=== PATIENT | male | born 1945 | race Caucasian/White ===

== ENCOUNTER → 2017-02-10 07:50 | Outpatient (CLI) | payer MEDICARE, OTHER ==
--- NOTE | ~2017-02-10 | HEMODYNAMI ---
PATIENT:REGINO AKERS MEDICAL RECORD: [id number] : 43 LOCATION:[facility] ADMISSION DATE: 02/10/17 Generatedon:02/10/201711:20 Patient name: REGINO AKERS Patient #: [id number] SSN: : 1945 Date of study: 02/10/2017 Page: Of Hemodynamic Procedure Report Patient Data Patient Demographics Procedure consent was obtained First Name: REGINO Gender: Male Last Name: DELPHINE : 1945 Middle Initial: H Age: 71 year(s) Patient #: [id number] Race: Unknown Additional ID: [id number] Contact details [address]: [address] [place] [address] State: [place] City: [place] Zip code: [address] Past Medical History Allergies Allergen Reaction Date Comments Reported Other allergy 02/10/2017 Sulfa Admission Admission Data Admission Date: 02/10/2017 Admission Time: 7:50 Height (in.): 71 BSA: 2.34 (m2) Height (cm.): 180.34 BMI: 35.56 (kg/m2) Weight (lbs.): 255 Weight (kg.): 115.67 Procedure Procedure Types Cath Procedure Diagnostic Procedure [facility] w/Coronaries FFR/IVUS Intra-Coronary IVUS Initial PCI Procedure Coronary Stent Initial Coronary Stent Additional Miscellaneous Procedures Moderate Sedation up to 15 minutes Procedure Description Procedure Date Procedure Date: 02/10/2017 Procedure Start Time: 10:51 Procedure End Time: 11:15 Procedure Staff Name Function Don Zamudio MD Performing Physician Jacqueline Merida RT Scrub Zackery Stovall RN Nurse Richa Wilson RT Monitor Procedure Data Cath Procedure Fluoroscopy Diagnostic fluoroscopy Total fluoroscopy Time: 6.6 time: 6.6 min min Diagnostic fluoroscopy Total fluoroscopy dose: dose: 1139 mGy 1139 mGy Contrast Material Contrast Material Type Amount (ml) Isovue 300 155 Entry Location Entry Primary Successful Side Size Upsize Upsize Entry Closure Timmons ccessful Closure Location (Fr) 1 (Fr) 2 (Fr) Remarks Device Remarks Radial Right 6 Fr Mechanical TR artery Short Compression Femoral Right 5 Fr 6 Fr Exoseal artery Short Estimated blood loss: 10 ml Diagnostic catheters Device Type Used For End Catheter Placement Diagnostic Terumo 5Fr Procedure Gasquet 110cm catheter Cordis 5Fr Pigtail LV Angiography Catheter (MP) Cordis 5Fr JL 4.0 Procedure Catheter (MP) Diagnostic Infinity 5Fr Procedure JL 5 catheter Cordis 5Fr 3DRC Catheter Procedure (MP) Procedure Complications No complications Procedure Medications Medication Administration Route Dosage Oxygen NC 2 l/min Lidocaine 2% added to field 20 Heparin Flush Bag added to field 2 bags (1000units/500ml NS) 0.9% NaCl I.V. 100 ml/hr Versed I.V. 1 mg Fentanyl I.V. 50 mcg Versed I.V. 1 mg Fentanyl I.V. 50 mcg Heparin Bolus I.V. 4000 units Fentanyl I.V. 50 mcg Integrilin (Bolus I.V. 10.2 ml 2mg/ml) Fentanyl I.V. 50 mcg Plavix P.O. 600 mg Hemodynamics Rest BSA: 2.34 (m2) O2 Consumption: Estimated: 263.01 (ml/min) O2 Consumption indexed : Estimated:112.4 (ml/min/m) Heart Rate: 62 (bpm) Snapshots Pre Cath Intra NCS Post Cath Vital Signs Time Heart Resp SPO2 etCO2 NIBP (mmHg) Rhythm Pain Sedation Rate (ipm) (%) (mmHg) Status Level (bpm) 10:43:17 65 19 97 40.6 151/88(127) NSR 0 (11) 10(A) , No pain 10:47:37 64 16 96 37.6 142/80(119) NSR 0 (11) 10(A) , No pain 10:51:55 63 15 96 36.1 147/81(109) NSR 0 (11) 10(A) , No pain 10:56:13 62 14 93 14.2 101/60(86) NSR 0 (11) 10(A) , No pain 11:01:08 66 14 93 27.8 128/70(99) NSR 0 (11) 9(A) , No pain 11:05:26 68 14 94 37.6 131/67(88) NSR 0 (11) 9(A) , No pain 11:09:46 67 15 95 45.1 136/71(110) NSR 0 (11) 9(A) , No pain 11:14:04 66 15 95 41.3 135/79(110) NSR 0 (11) 10(A) , No pain Medications Time Medication Route Dose Verified Delivered Reason Notes Effectiveness by by 10:42:44 Oxygen NC 2 Buffie Buffie used for l/min Sia Stovall RN procedure 10:42:51 Lidocaine 2% added 20ml Buffie Don for local to vial Sia Zamudio MD anesthetic field 10:42:57 Heparin Flush added 2 Buffie Don used for Bag to bags Sia Zamudio MD procedure (1000units/500ml field NS) 10:43:05 0.9% NaCl I.V. 100 Buffie Buffie Per physician ml/hr Sia Stovall RN 10:46:45 Versed I.V. 1 mg Buffie Buffie for sedation Sia Stovall RN 10:46:51 Fentanyl I.V. 50 Buffie Buffie for sedation mcg Sia Stovall RN 10:53:47 Versed I.V. 1 mg Buffie Buffie for sedation Sia Stovall RN 10:53:51 Fentanyl I.V. 50 Buffie Buffie for sedation mcg Sia Stovall RN 10:57:00 Fentanyl I.V. 50 Buffie Buffie for sedation mcg Sia Stovall RN 11:00:27 Heparin Bolus I.V. 4000 Buffie Buffie for verifi ed units Sia Stovall RN anticoagulation with dr zamudio 11:00:38 Fentanyl I.V. 50 Buffie Buffie for sedation mcg Sia Stovall RN 11:05:01 Integrilin I.V. 10.2 Buffie Buffie for Wasted (Bolus 2mg/ml) ml Sia Stovall RN antiplatelet 9.8 ml therapy of vial 11:19:38 Plavix P.O. 600 Buffie Buffie for mg Sia Stovall RN antiplatelet therapy Procedure Log Time Note 10:22:42 Patient Height : 71 inches 10:22:51 Patient Weight : 255 lbs 10:23:13 Diagnostic Cath status Elective 10:23:15 Zackery Stovall RN sent for patient. Start room use. 10:23:16 Time tracking: Regular hours 10:29:14 Patient received from Pre/Post Procedure Room to CCL 2 Alert and oriented. Tansferred to table in Supine position. 10:29:18 Warm blankets applied, and brenda hugger turned on for patient comfort. 10:29:18 Correct patient and procedure confirmed by team. 10:29:21 Signed procedure consent form obtained from patient. 10:29:39 H&P Date Dictated: 02/03/2017 Within 30 days and on chart., H&P Addendum completed by physician on day of procedure. (MUST COMPLETE FOR ALL OUTPATIENTS). 10:29:40 Pre-procedure instructions explained to patient. 10:29:42 Family in waiting room. 10:29:44 Patient NPO since Midnight. 10:29:58 Patient allergic to Other allergySulfa 10:30:05 Was the patient premedicated? Yes 10:32:12 Is patient on blood thinner?No 10:32:15 Patient diabetic? No. 10:32:18 Previous problem with sedation/anesthesia? No ? 10:38:42 Snore? Yes 10:38:44 Sleep apnea? Yes 10:38:52 Patient pain scale 0/10 ?. 10:39:00 IV patent on arrival in left forearm with 0.9% NaCl at [facility]. 10:39:12 Lab results completed and on chart. 10:39:17 Right Radial & Right Groin area was prepped with chlora-prep and draped in sterile fashion 10:39:18 Alarms reviewed by R. N. 10:39:19 Sharps counted by scrub and verified by R.N. 10:39:21 Physician paged 10:39:21 Physician arrived 10:39:22 --------ALL STOP TIME OUT------ 10:39:24 Final Timeout: patient, procedure, and site verified with staff and physician. All members of the team are in agreement. 10:39:26 Right Radial & Right Groin site verified by team. 10:39:30 Physical assessment completed. ASA score P 2 - A patient with mild systemic disease as per Don Zamudio MD. 10:39:34 Sedation plan: IV Moderate Sedation Versed, Fentanyl 10:39:55 Use device set Radial Dx 10:39:56 Acist Syringe opened to sterile field. 10:39:56 Medline Cath Pack opened to sterile field. 10:39:57 Bag Decanter opened to sterile field. 10:39:58 Terumo 6Fr Slender Glidesheath opened to sterile field. 10:39:58 St Maximiliano 260cm J .035 wire opened to sterile field. 10:39:58 Acist Hand Control opened to sterile field. 10:39:59 Acist Manifold opened to sterile field. 10:39:59 Tegaderm 4 x 4 opened to sterile field. 10:40:00 MBrace Wrist Support opened to sterile field. 10:42:06 ECG and BP/O2 sat monitors applied to patient. 10:42:07 Vital chart was started 10:42:09 Baseline sample Acquired. 10:42:14 Rhythm: sinus rhythm 10:42:15 Full Disclosure recording started 10:42:29 Is patient on blood thinner?Yes 10:42:39 ACC The patient was administered the following blood thiners within the last 24 hours: Eliquis 10:42:44 Oxygen 2 l/min NC was administered by Zackery Stovall RN; used for procedure; 10:42:51 Lidocaine 2% 20ml vial added to field was administered by Don Zamudio MD; for local anesthetic; 10:42:57 Heparin Flush Bag (1000units/500ml NS) 2 bags added to field was administered by Don Zamudio MD; used for procedure; 10:43:05 0.9% NaCl 100 ml/hr I.V. was administered by Zackery Stovall RN; Per physician; 10:46:45 Versed 1 mg I.V. was administered by Zackery Stovall RN; for sedation; 10:46:51 Fentanyl 50 mcg I.V. was administered by Zackery Stovall RN; for sedation; 10:49:34 Zero performed for pressure channel P1 10:49:39 Zero performed for pressure channel P1 10:49:45 Zero performed for pressure channel P1 10:49:52 Zero performed for pressure channel P1 10:50:42 Zero performed for pressure channel P1 10:51:04 Local anesthetic to right radial artery with Lidocaine 2% by Don Zamudio MD.INITIAL ACCESS ONLY 10:51:15 A 6 Fr Short sheath was inserted into the Right Radial artery 10:51:48 A Diagnostic Terumo 5Fr Gasquet 110cm catheter was advanced over the wire and used for Procedure. 10:52:48 Use device set Multipack Set 10:53:19 unable to access heart through radial. 10:53:26 Local anesthetic to right femoral artery with Lidocaine 2% by Don Zamudio MD.ADDITIONAL ACCESS 10:53:39 A 5 Fr sheath was inserted into the Right Femoral artery 10:53:47 Versed 1 mg I.V. was administered by Zackery Stovall RN; for sedation; 10:53:51 Fentanyl 50 mcg I.V. was administered by Zackery Stovall RN; for sedation; 10:54:09 Diagnostic Infinity 5Fr Multipack catheter opened to sterile field. 10:54:10 Terumo 5Fr [place] Sheath opened to sterile field. 10:54:24 A Cordis 5Fr Pigtail Catheter (MP) was advanced over the wire and used for LV Angiography. 10:54:49 Aortic Root visualized 10:56:02 EF : 60 % 10:56:08 Catheter removed. 10:56:34 A Cordis 5Fr JL 4.0 Catheter (MP) was advanced over the wire and used for Procedure. 10:56:45 Catheter removed. 10:57:00 Fentanyl 50 mcg I.V. was administered by Zackery Stovall RN; for sedation; 10:57:05 A Diagnostic Infinity 5Fr JL 5 catheter was advanced over the wire and used for Procedure. 10:58:06 Catheter removed. 10:58:14 A Cordis 5Fr 3DRC Catheter (MP) was advanced over the wire and used for Procedure. 10:59:12 [place] IVUS Catheter opened to sterile field. 10:59:12 Leaders2020 BasixCompak Inflation Kit opened to sterile field. 10:59:13 Terumo 6Fr [place] Sheath opened to sterile field. 10:59:13 Nguyen Whisper J 300cm 0.014 guide wire opened to sterile field. 10:59:14 Medtronic Launcher 6Fr EBU 4.5 SH guide catheter opened to sterile field. 10:59:23 Sheath upsized to a 6 Fr Short. 10:59:52 6 Fr EBU 4.5 guide catheter was inserted over the wire 11:00:27 Heparin Bolus 4000 units I.V. was administered by Zackery Stovall RN; for anticoagulation; verified with dr zamudio 11:00:38 Fentanyl 50 mcg I.V. was administered by Zackery Stovall RN; for sedation; 11:00:38 Whisper wire advanced. 11:00:59 IVUS catheter advanced over wire. 11:04:19 IVUS catheter removed over wire. 11:05:01 Integrilin (Bolus 2mg/ml) 10.2 ml I.V. was administered by Zackery Stovall RN; for antiplatelet therapy; Wasted 9.8 ml of vial 11:06:55 Inflation Number: 1 A Antwon OTW 3.0 x 22 stent was prepped and advanced across the Mid LAD. The stent was deployed at 15 CLIVE for 0:06 (min:sec). 11:08:22 Stent catheter was removed intact over wire. 11:08:28 Wire redirected to Ramus. 11:09:16 Inflation Number: 1 A Emory OTW 3.0 x 15 stent was prepped and advanced across the Ramus. The stent was deployed at 11 CLIVE for 0:10 (min:sec). 11:11:06 Stent catheter was removed intact over wire. 11:11:08 Wire removed. 11:11:09 Guide catheter removed. 11:11:26 Cordis 6Fr Exoseal opened to sterile field. 11:11:26 Terumo TR Band Large opened to sterile field. 11:11:42 Sheath removed intact; hemostasis achieved with Exoseal to the Right Femoral artery. 11:11:53 Sheath removed intact; hemostasis achieved with Mechanical Compression to the Right Radial artery. 11:11:57 Procedure ended.(Physican Out) 11:13:02 Fluoroscopy time 06.60 minutes. 11:13:07 Fluoroscopy dose: 1139 mGy 11:13:07 Flurop Dose total: 1139 11:13:12 Contrast amount:Isovue 300 155ml. 11:13:14 Sharps counted by scrub and verified by R.N. 11:13:17 TR band inflated with 12cc of air. 11:13:18 Insertion/operative site no bleeding no hematoma. 11:13:21 Post-op/insertion site Right Femoral artery dressed using a 4 x 4 and Tegaderm. 11:13:27 Post-procedure physical assessment completed. ASA score P 2 - A patient with mild systemic disease as per Don Zamudio MD. 11:13:30 Post procedure rhythm: unchanged. 11:13:33 Estimated blood loss: 10 ml 11:13:36 Post procedure instruction explained to patient.Patient verbalizes understanding. 11:13:43 Patient needs reinforcement of post procedure teaching. 11:14:38 Procedure type changed to Cath procedure, Diagnostic procedure, LHC, C w/Coronaries, FFR/IVUS, Intra-Coronary IVUS Initial, PCI procedure, Coronary Stent Initial, Coronary Stent Additional, Miscellaneous Procedures, Moderate Sedation up to 15 minutes 11:14:41 Procedure and supply charges have been captured, reviewed, submitted and are correct. 11:15:17 Procedure Complication : No complications 11:15:20 Vital chart was stopped 11:15:40 See physician's report for complete and final results. 11:15:42 Report given to Pre/Post Procedure Room. 11:15:54 Patient transfered to Pre/Post Procedure Room with Stretcher. 11:15:56 Procedure ended. 11:15:56 Full Disclosure recording stopped 11:16:19 ACC-PCI Only Patient was given prescriptions, or instructed by Don Zamudio MD to start/continue the following medications upon discharge: Plavix 11:19:38 Plavix 600 mg P.O. was administered by Zackery Stovall RN; for antiplatelet therapy; Intervention Summary Intervention Notes Time ActionType Lesion and Equipment Action# Pressure Duration Attributes Used 11:06:55 Place stent Mid LAD Emory OTW 1 15 00:07 3.0 x 22 stent 11:09:16 Place stent Ramus Emory OTW 1 11 00:10 3.0 x 15 stent Device Usage Item Name Manufacture Quantity Catalog Hospital Part Current Minima l Lot# / Number Charge Number Stock Stock Serial# Code Acist Acist 1 82735 090664 790813 822512 20 Syringe Medical Systems Inc Medline Cardinal 1 [id number] 694274 27458 431338 5 Cath Pack Health Bag Microtek 1 2001S 859984 98284 381252 5 Dolphin Medical Inc. Terumo 6Fr Terumo 1 [id number] 302525 388297 719876 [address] St Maximiliano 1 940225 770170 097641 624786 30 260cm J .035 wire Acist Hand Acist 1 68692 461188 868780 542691 5 RSP Tooling Systems Inc Acist Acist 1 39054 308945 518040 740403 5 Oxsensis Systems Altura Medical Tegaderm 4 3M 1 1626W 316024 376925 116700 5 x 4 MBrace Advanced 1 140-0250-00 054574 75828 462768 5 Wrist Vascular Support Dynamics Diagnostic Terumo 1 23-3380 253614 704037 362648 5 Terumo 5Fr Gasquet 110cm catheter Diagnostic Cardinal 1 [id number] 400213 15394 014659 30 Infinity Health 5Fr Multipack catheter Terumo 5Fr Terumo 1 JDL158 435066 743320 743182 40 [place] Sheath Cordis 5Fr Cardinal 1 793853 5 Pigtail Health Catheter (MP) Cordis 5Fr Cardinal 1 198890 5 JL 4.0 Health Catheter (MP) Diagnostic Cardinal 1 [id number] 955349 574539 376281 5 Infinity Health 5Fr JL 5 catheter Cordis 5Fr Cardinal 1 898297 5 3DRC Health Catheter (MP) [place] 1 60741P 992118 306925 454108 8 [place] Eagley[place] IVUS Catheter Merit Merit 1 TM0496 675407 670197 389375 15 YG Entertainment Medical Inflation Kit Terumo 6Fr Terumo 1 ZGL195 628818 483956 211549 40 [place] Sheath Nguyen Nguyen 1 [id number] 885376 384669 475082 5 Whisper J Vascular 300cm 0.014 guide wire Medtronic Medtronic 1 [id number] 030240 78443 975587 0 Launcher 6Fr EBU 4.5 SH guide catheter Antwon OTW Medtronic 1 [id number] 575242 6028367 520853 5 [id number] 3.0 x 22 stent Antwon OTW Medtronic 1 [id number] 377099 569000 320337 5 [id number] 3.0 x 15 stent Cordis 6Fr Cardinal 1 EX600 687971 292385 244393 10 Infrascaleeal Health Terumo TR Terumo 1 [id number] 180516 500443 069374 40 Band Large Signature Audit [place] Stage Time Signature Unsigned Intra-Procedure 02/10/2017 Richa Wilson 11:20:51 AM RT(R) Signatures Monitor : Richa Wilson Signature : RT Date : Time : [facility] [address] [place] [address]
[~2017-02-10 07:50] MED LIST: BAYER CHEWABLE81 MG PO; BUPROBAN150 MG PO; CELEXA40 MG PO; ELIQUIS2.5 MG PO; FLINTSTONE1 TAB.CHEW; FLOMAX0.4 MG PO; IPRAT-ALBUT 0.5-3 ML UPD; K-DUR20 MEQ PO; LEXAPRO10 MG PO; LIPITOR10 MG PO; MAG-OX 400 MG400 MG PO; MIRALAX17 GM PO; NAPROSYN500 MG PO; NEXIUM40 MG; NEXIUM40 MG PO; NIASPAN500 MG PO; NORVASC10 MG PO; PERCOCET 5-3251 TAB PO; PLAVIX75 MG PO; PRINIVIL20 MG PO; STOOL SOFTENER240 MG PO; XIFAXAN550 MG PO
[2017-02-10 08:30] VITALS: BP 136/73; BMI 34.9
[2017-02-10 08:46] LABS: BASOPHILS 0.2 % (0-2); EOSINOPHILS 3.8 % (0-7); HEMATOCRIT 42.8 % (42.0-54.0); HEMOGLOBIN 14.8 g/dL (13.5-17.5); IMMATURE GRANULOCYTES 0.2 % (0-5); LYMPHOCYTES 18.5 % (15-50); MCH 31.9 pg (26.0-34.0); MCHC 34.6 g/dL (31.0-37.0); MCV 92.2 fL (80.0-100.0); MEAN PLATELET VOLUME 10.9 fL (7.4-10.4); MONOCYTES 10.4 % (2-11); NEUTROPHILS 66.9 % (40-80); RBC 4.64 10x6/uL (4.20-6.10); RDW 13.3 % (11.5-14.5); WBC 4.7 10x3/uL (4.8-10.8)
[2017-02-10 08:48] LABS: PLATELET COUNT 138 10x3/uL (130-400)
[2017-02-10 09:23] LABS: ANION GAP 13.9 mmol/L (8-16); CARBON DIOXIDE 27.9 mmol/L (21.0-32.0); CREATININE - SERUM 1.3 mg/dL (0.6-1.3); POTASSIUM - SERUM 3.8 mmol/L (3.5-5.1)
--- NOTE | 2017-02-10 11:32 | NUR ---
RECIEVED TO ROOM VIA STRETCHER FROM DRUG SAFETY ASSISTANT WITH REPORTS OF ONE STENT TO THE LAD AND ONE STENT TO THE RAMUS. TR BAND TO R/WRIST CDI NO BLEEDING NO HEMATOMA NOTED. 6 FR EXOSEAL R/GROIN CDI NO BLEEDING NO HEMATOMA NOTED. INSTRUCTED PATIENT TO KEEP HEAD FLAT ON PILLOW WITH RLE STRAIGHT.
--- NOTE | 2017-02-10 11:50 | NUR ---
6 FR EXOSEAL R/GROIN CDI NO BLEEDING NO HEMATOMA NOTED. TR BAND TO R/WRIST CDI NO BLEEDING VSS WITH CHEST PAIN DENIED TOLERATING JUICE WITH NAUSEA DENIED
--- NOTE | 2017-02-10 12:33 | NUR ---
TR BAND R/WRIST CDI NO BLEEDING 6 FR EXOSEAL R/GROIN CDI NO BLEEDING NO HEMATOMA NOTED. VSS WITH CHEST PAIN DENIED
--- NOTE | 2017-02-10 13:00 | NUR ---
PATIENT CONTINUES TO SLEEP WITH NO DISTRESS NOTED.VSS
--- NOTE | 2017-02-10 13:34 | NUR ---
3 CC AIR REMOVED FROM TR BAND WITH NO BLEEDING NO HEMATOMA NOTED. 6 FR EXOSEAL R/GROIN REMAINS CDI
--- NOTE | 2017-02-10 14:00 | NUR ---
1400 3 CC AIR REMOVED FROM TR BAND WITH NO BLEEDING NO HEMATOMA NOTED. R/GROIN REMAINS CDI
--- NOTE | 2017-02-10 15:04 | NUR ---
REPOSITIONED TO SITTING WITH HOB UP 45 DEGREES R/GROIN CDI NO BLEEDING NOTED. 3 CC AIR REMOVED FROM TR BAND WITH NO BLEEDING
--- NOTE | 2017-02-10 15:27 | NUR ---
PIV REMOVED WITH DRESSING APPLIED. 4 CC AIR REMOVED FROM TR BAND WITH NO BLEEDING NO HEMATOMA NOTED. VERBAL AND WRITTEN DISCHARGE GONE OVER WITH PATIENT AND FAMILY. UP TO GET DRESSED FOR DISCHARGE HOME CHEST PAIN DENIED
--- NOTE | 2017-02-10 15:32 | NUR ---
TR BAND REMOVED WITH DRESSING APPLIED. CHEST PAIN IS DENIED. PATIENT LEFT VIA WC WITH FAMILY TO PARKING FOR DISCHARGE HOME
--- NOTE | 2017-02-13 16:56 | OP ---
PATIENT NAME: REGINO AKERS MEDICAL RECORD: [id number] :43 LOCATION:[facility] ADMISSION DATE: SURGEON: ELMO SMITH MD DATE OF OPERATION: 02/10/2017 PROCEDURES: 1. PTCA stent to LAD. 2. PTCA stent to ramus intermedius. 3. Intravascular ultrasound. 4. Left heart catheterization. 5. Selective coronary angiography. 6. Left ventriculogram. PROCEDURE IN DETAIL: After informed consent was obtained and after a detailed explanation of the risks, benefits as well as alternative therapies, the patient elected to proceed with angiogram and angioplasty. The right radial area was prepped and draped in normal sterile fashion. The right radial artery was cannulated via modified Seldinger technique with placement of 6-[place] sheath. All catheters exchanged through this sheath. FINDINGS: Left ventriculogram was performed in standard 30-degree SILVA view, reveals good cardiac wall motion throughout all segments. Overall ejection fraction estimated 60%. SELECTIVE CORONARY ANGIOGRAPHY: 1. Left main showed no significant angiographic disease. 2. Left anterior descending has a 78% stenosis in the mid vessel confirmed by intravascular ultrasound. 3. Left circumflex has a ramus intermedius with 70% to 75% stenosis. 4. Right coronary has moderate irregularities, but no flow-limiting stenosis. PTCA STENT OF THE LAD AND RAMUS INTERMEDIUS: The LAD was addressed with a 3.0 x 22 mm [place], the ramus intermedius with a 3.0 x 15 mm [place]. Result was 0% residual stenosis. OVERALL IMPRESSION: Successful percutaneous transluminal coronary angioplasty stent of the left anterior descending and ramus intermedius going from 75% to 80% initial stenosis to 0% residual stenosis. TRANSINT:[id number] Voice Confirmation ID: [id number] DOCUMENT ID: [id number] ELMO SMITH MD at 1656 CC: [id number] DICTATION DATE: 02/10/17 1144 [place] MAKER: 02/10/17 1205 [facility] CLI 02/10/17 [place] [id number]
== END | disposition home or self-care (01) ==
LOC: D.CATH 07:50
PROVIDERS: Internal Medicine Interventional Cardiology
DX: I25.119 Atherosclerotic heart disease of native coronary artery with unspecified angina pectoris (principal); Z95.5 Presence of coronary angioplasty implant and graft; Z01.812 Encounter for preprocedural laboratory examination
CPT/HCPCS: 92978; 93458; C9600 ×2

== ENCOUNTER → 2018-02-26 08:52 | Outpatient (CLI) | payer MEDICARE, OTHER ==
[~2018-02-26] VITALS: Ht 180.3 cm; Wt 108.6 kg
--- NOTE | ~2018-02-26 | OP ---
PATIENT NAME: REGINO AKERS MEDICAL RECORD: [id number] :43 LOCATION:D.CAT ADMISSION DATE: SURGEON: ELMO SMITH MD DATE OF OPERATION: 02/26/2018 PROCEDURES: 1. PTCA and stent of ramus intermedius. 2. Left heart catheterization. 3. Selective coronary angiography. 4. Left ventriculogram. INDICATION: Angina and coronary artery disease. PROCEDURE IN DETAIL: After informed consent was obtained and after a detailed explanation of risks, benefits as well as alternative therapies, the patient elected to proceed with angiogram and angioplasty. The right femoral area was prepped and draped in normal sterile fashion. Right femoral artery was cannulated via modified Seldinger technique with placement of 6-[place] sheath. All catheters exchanged through this sheath. FINDINGS: The left ventriculogram was performed in standard 30-degree SILVA view, reveals good cardiac wall motion throughout all segments. Overall ejection fraction estimated 60%. SELECTIVE CORONARY ANGIOGRAPHY: 1. Left main has no significant angiographic disease. 2. Left anterior descending has previously placed stent that is widely patent with no significant restenosis. No disease elsewise throughout the LAD or its branches. 3. Ramus intermedius of the circumflex has a previously placed stent. It is widely patent; however, there is 70% to 80% stenosis proximal and distal to the stent. Otherwise the left circumflex shows mild irregularities, but no flow-limiting stenosis. 4. Right coronary has mild irregularities, but no flow-limiting stenosis. PTCA AND STENT OF THE RAMUS INTERMEDIUS: The stent used covering both lesions was a 2.5 x 26-mm [place]. The result was 0% residual stenosis. OVERALL IMPRESSION: Successful PTCA and stent of the left circumflex ramus intermedius going from 70% to 80% initial stenosis times 2 to 0% residual. TRANSINT:[id number] Voice Confirmation ID: [id number] DOCUMENT ID: [id number] ELMO SMITH MD at 1031 CC: VIVIANA AKERS [id number] DICTATION DATE: 02/26/18 1150 SOCIAL MEDIA STRATEGIST: 02/26/18 1405 [facility]P CLI 02/26/18 [facility] [address] [place] [address]
--- NOTE | ~2018-02-26 | HEMODYNAMI ---
PATIENT:REGINO AKERS MEDICAL RECORD: [id number] : 43 LOCATION:[facility] ADMISSION DATE: 02/26/18 Generatedon:02/26/201811:50 Patient name: REGINO AKERS Patient #: [id number] SSN: : 1945 Date of study: 02/26/2018 Page: Of Hemodynamic Procedure Report Patient Data Patient Demographics Procedure consent was obtained First Name: REGINO Gender: Male Last Name: DELPHINE : 1945 Middle Initial: H Age: 72 year(s) Patient #: [id number] Race: Unknown Additional ID: [id number] Contact details [address]: [address] [place] [address] State: [place] City: [place] Zip code: [address] Past Medical History Allergies Allergen Reaction Date Comments Reported Other allergy 02/10/2017 Sulfa Admission Admission Data Admission Date: 02/26/2018 Admission Time: 8:52 Procedure Procedure Types Cath Procedure Diagnostic Procedure LHC [facility] w/Coronaries Sedation Charges Moderate Sedation up to 15 minutes PCI Procedure Coronary Stent Coronary Stent Initial Procedure Description Procedure Date Procedure Date: 02/26/2018 Procedure Start Time: 11:34 Procedure End Time: 11:48 Procedure Staff Name Function Don Zamudio MD Performing Physician Jacqueline Merida RT Monitor Zackery Stovall RN Nurse Mary Curiel RT Scrub Art Salazar RN Steel Finisher Procedure Data Cath Procedure Fluoroscopy Diagnostic fluoroscopy Total fluoroscopy Time: 2.9 time: 2.9 min min Diagnostic fluoroscopy Total fluoroscopy dose: 719 dose: 719 mGy mGy Contrast Material Contrast Material Type Amount (ml) Isovue 300 109 Entry Location Entry Primary Successful Side Size Upsize Upsize Entry Closure Succes sful Closure Location (Fr) 1 (Fr) 2 (Fr) Remarks Device Remarks Femoral Right 5 Fr 6 Fr Exoseal artery Short Estimated blood loss: 5 ml Diagnostic catheters Device Type Used For End Catheter Placement Medtronic Dexterity 5Fr LV Angiography Pigtail catheter(NO COST SUPPLY) DIAGNOSTIC JL 5 5Fr Left Coronary catheter ([id number]) Angiography DIAGNOSTIC 3DRC 5Fr Right Coronary catheter ([id number]) Angiography Procedure Complications No complications Procedure Medications Medication Administration Route Dosage Oxygen etCO2 Nasal cannula 2 l/min Lidocaine 2% added to field 20 Heparin Flush Bag added to field 2 bags (1000units/500ml NS) 0.9% NaCl I.V. 100 ml/hr Versed I.V. 1 mg Fentanyl I.V. 50 mcg Versed I.V. 1 mg Fentanyl I.V. 25 mcg Heparin Bolus I.V. 4000 units Integrilin (Bolus I.V. 9.5 ml 2mg/ml) Versed I.V. 0.5 mg Plavix P.O. 600 mg Hemodynamics Rest Heart Rate: 51 (bpm) Pressure Samples Time Site Value (mmHg) Purpose Heart Use Rate(bpm) 11:36 LV 103/9,16 Snapshot 55 Snapshots Pre Cath Intra NCS Post Cath Vital Signs Time Heart Resp SPO2 etCO2 NIBP (mmHg) Rhythm Pain Sedation Rate (ipm) (%) (mmHg) Status Level (bpm) 10:47:21 52 14 97 35.6 175/83(109) NSR 0 (11) 10(A) , No pain 10:51:45 51 15 97 39.4 164/78(104) NSR 0 (11) 10(A) , No pain 10:56:07 51 15 97 40.1 156/79(99) NSR 0 (11) 10(A) , No pain 11:00:27 52 16 97 39.3 151/76(99) NSR 0 (11) 10(A) , No pain 11:04:43 51 16 97 37.8 152/84(113) NSR 0 (11) 10(A) , No pain 11:09:52 51 14 97 38.6 143/81(98) NSR 0 (11) 10(A) , No pain 11:14:08 51 15 96 40.1 145/78(98) NSR 0 (11) 10(A) , No pain 11:18:24 52 15 96 43.9 138/77(105) NSR 0 (11) 10(A) , No pain 11:22:28 55 14 99 44.6 124/72(92) NSR 0 (11) 10(A) , No pain 11:26:36 52 14 96 43.1 136/78(97) NSR 0 (11) 10(A) , No pain 11:30:50 52 15 97 43.9 136/76(98) NSR 0 (11) 9(A) , No pain 11:35:04 49 14 97 38.6 137/75(105) NSR 0 (11) 9(A) , No pain 11:39:18 51 14 97 40.1 137/72(111) NSR 0 (11) 9(A) , No pain 11:43:30 50 13 97 43.1 138/77(114) NSR 0 (11) 9(A) , No pain 11:47:44 52 13 97 43.9 142/74(105) NSR 0 (11) 10(A) , No pain Medications Time Medication Route Dose Verified Delivered Reason Notes Effectiveness by by 10:45:39 Oxygen etCO2 2 Don Vizcarra used for Nasal l/min Lizz Stovall RN procedure cannula 10:45:47 Lidocaine 2% added 20ml Don Ochoa for local to vial Lizz Zamudio MD anesthetic field 10:45:53 Heparin Flush added 2 Don Don used for Bag to bags Lizz Zamudio MD procedure (1000units/500ml field NS) 10:46:02 0.9% NaCl I.V. 100 Don Vizcarra Per physician ml/hr Lizz Stovall RN 11:29:34 Versed I.V. 1 mg Don Vizcarra for sedation Lizz Stovall RN 11:29:39 Fentanyl I.V. 50 Don Melendezie for sedation mcg Lizz Stovall RN 11:35:38 Versed I.V. 1 mg Don Melendezie for sedation Lizz Stovall RN 11:35:44 Fentanyl I.V. 25 Don Vizcarra for sedation mcg Lizz Stovall RN 11:39:36 Versed I.V. 0.5 Don Vizcarra for sedation mg Lizz Stovall RN 11:41:16 Heparin Bolus I.V. 4000 Don Vizcarra for verif ied units Lizz Stovall RN anticoagulation with dr azmudio 11:43:31 Integrilin I.V. 9.5 Don Vizcarra for waste d (Bolus 2mg/ml) ml Tauth MD Stovall RN antiplatelet 0.5 ml therapy of vial 11:47:54 Plavix P.O. 600 Don Vizcarra for mg Lizz Stovall RN antiplatelet therapy Procedure Log Time Note 10:30:08 Art Salazar RN sent for patient. Start room use. 10:38:14 Time tracking: Regular hours (M-F 7:00 - 5:00) 10:38:18 Plan of Care:Hemodynamics will remain stable., Cardiac rhythm will remain stable., Comfort level will be maintained., Respiratory function will remain adequate., Patient/ family verbilizes understanding of procedure., Procedure tolerated without complication., Recovers from procedure without complications.. 10:38:24 Patient received from Pre/Post Procedure Room to [facility] 2 Alert and oriented. Tansferred to table in Supine position. 10:38:25 Warm blankets applied, and brenda hugger turned on for patient comfort. 10:38:26 Correct patient and procedure confirmed by team. 10:38:27 Signed procedure consent form obtained from patient. 10:38:28 ECG and BP/O2 sat monitors applied to patient. 10:38:29 Full Disclosure recording started 10:45:39 Oxygen 2 l/min etCO2 Nasal cannula was administered by Zackery Stovall RN; used for procedure; 10:45:47 Lidocaine 2% 20ml vial added to field was administered by Don Zamudio MD; for local anesthetic; 10:45:53 Heparin Flush Bag (1000units/500ml NS) 2 bags added to field was administered by Don Zamudio MD; used for procedure; 10:46:02 0.9% NaCl 100 ml/hr I.V. was administered by Zackery Stovall RN; Per physician; 10:46:07 Vital chart was started 10:46:23 Baseline sample Acquired. 10:46:26 Rhythm: sinus rhythm 10:46:33 H&P Date Dictated: 02/26/2018 Within 30 days and on chart., H&P Addendum completed by physician on day of procedure. (MUST COMPLETE FOR ALL OUTPATIENTS). 10:46:35 Pre-procedure instructions explained to patient. 10:46:35 Pre-op teaching completed and patient verbalized understanding. 10:46:36 Family in waiting room. 10:46:38 Patient NPO since Midnight. 10:46:40 Is the patient allergic to Iodine/contrast media? No. 10:46:41 Was the patient premedicated? No 10:46:42 Is patient on blood thinner?Yes 10:46:44 ACC The patient was administered the following blood thiners within the last 24 hours: Xarelto 10:49:00 Patient diabetic? No. 10:49:02 Previous problem with sedation/anesthesia? No ? 10:49:05 Snore? Yes 10:49:07 Sleep apnea? Yes 10:49:13 Deviated septum? No 10:49:14 Opens mouth fully? Yes 10:49:15 Sticks out tongue? Yes 10:49:17 Airway obstruction? No ? 10:49:22 Dentures? No ? 10:49:26 Pre procedure: right dorsailis pedis pulse 2+ Normal; easily identifiable; not easily obliterated 10:49:29 Pre procedure: left dorsailis pedis pulse 2+ Normal; easily identifiable; not easily obliterated 10:49:32 Patient pain scale 0/10 ?. 10:49:39 IV patent on arrival in left forearm with 0.9% NaCl at [facility]. 10:49:42 Lab results completed and on chart. 10:49:47 Right groin area was prepped with chlora-prep and draped in sterile fashion 10:49:48 Alarms reviewed by R. N. 10:49:48 Sharps counted by scrub and verified by R.N. 10:53:41 Use device set Femoral Dx 10:53:42 ACIST Syringe (48728) opened to sterile field. 10:53:43 Bag Decanter (2001S) opened to sterile field. 10:53:44 Medline Cath Pack ([id number]) opened to sterile field. 10:53:44 DIAGNOSTIC WIRE .035 260cm J wire (148793) opened to sterile field. 10:53:46 ACIST Hand Control (04981) opened to sterile field. 10:53:47 ACIST Manifold (54511) opened to sterile field. 10:53:50 Tegaderm 4 x 4 (1626W) opened to sterile field. 10:57:35 Zero performed for pressure channel P1 11:28:34 Physician arrived 11:28:35 --------ALL STOP TIME OUT------ 11:28:35 Final Timeout: patient, procedure, and site verified with staff and physician. All members of the team are in agreement. 11:28:38 Right groin site verified by team. 11:28:41 Physical assessment completed. ASA score P 2 - A patient with mild systemic disease as per Don Zamudio MD. 11::45 Sedation plan: IV Moderate Sedation Medication:Versed, Fentanyl 11:29:34 Versed 1 mg I.V. was administered by Zackery Stovall RN; for sedation; 11::39 Fentanyl 50 mcg I.V. was administered by Zackery Stovall RN; for sedation; 11:34:48 Procedure started. 11:34:52 Local anesthetic to right femoral artery with Lidocaine 2% by Don Zamudio MD.INITIAL ACCESS ONLY 11:35:05 A 5 Fr sheath was inserted into the Right Femoral artery 11:35:24 A Tandemerity 5Fr Pigtail catheter(NO COST SUPPLY) was advanced over the wire and used for LV Angiography. 11:35:38 Versed 1 mg I.V. was administered by Zackery Stovall RN; for sedation; 11::44 Fentanyl 25 mcg I.V. was administered by Zackery Stovall RN; for sedation; 11:36:31 LV hemodynamics recorded. 11:36:32 LV gram done using SILVA 11:36:35 Injector settings: Ml/sec: 5, Volume: 15, 11:36:43 EF : 60 % 11:36:45 Catheter removed. 11:36:54 A DIAGNOSTIC JL 5 5Fr catheter ([id number]) was advanced over the wire and used for Left Coronary Angiography. 11:37:21 LCA angiography performed. 11:37:23 Injector settings: Ml/sec: 3, Volume: 6, 11:39:33 Catheter removed. 11:39:36 Versed 0.5 mg I.V. was administered by Zackery Stovall RN; for sedation; 11:39:37 A DIAGNOSTIC 3DRC 5Fr catheter ([id number]) was advanced over the wire and used for Right Coronary Angiography. 11:39:39 RCA angiography performed. 11:39:42 Injector settings: Ml/sec: 3, Volume: 6, 11:39:54 Catheter removed. 11:39:55 Proceeding to intervention. 11:40:29 CHOICE PT Extra Support 182cm wire ([id number]) opened to sterile field. 11:40:30 INFLATOR Merit BasixCompak (QJ1674) opened to sterile field. 11:40:30 SHEATH 6FR Bruno (ORV733) opened to sterile field. 11:40:45 GUIDE 6FR EBU 4.5 catheter ([id number]) opened to sterile field. 11:41:06 Sheath upsized to a 6 Fr Short. 11:41:15 6 Fr ebu 4.5 guide catheter was inserted over the wire 11:41:16 Heparin Bolus 4000 units I.V. was administered by Zackery Stovall RN; for anticoagulation; verified with dr zamudio 11:41:26 choice pt wire advanced. 11:41:38 Wire advanced across lesion. 11:43:31 Integrilin (Bolus 2mg/ml) 9.5 ml I.V. was administered by Zackery Stovall RN; for antiplatelet therapy; wasted 0.5 ml of vial 11:43:54 Place stent Inflation Number: 1 A AP RX 2.5 x 26 stent ([id number]) was prepped and advanced across the Ramus. The stent was deployed at 13 CLIVE for 0:10 (min:sec). 11:44:10 Stent catheter was removed intact over wire. 11:44:11 Wire removed. 11:44:11 Guide catheter removed. 11:44:27 EXOSEAL 6Fr (EX600) opened to sterile field. 11:44:36 Sheath removed intact; hemostasis achieved with Exoseal to the Right Femoral artery. 11:44:38 Procedure ended.(Physican Out) 11:45:16 Fluoroscopy time 02.90 minutes. 11:45:21 Fluoroscopy dose: 719 mGy 11:45:21 Flurop Dose total: 719 11:45:26 Contrast amount:Isovue 300 109ml. 11:45:29 Sharps counted by scrub and verified by R.N. 11:46:21 Insertion/operative site no bleeding no hematoma. 11:46:26 Post-op/insertion site Right Femoral artery dressed using a 4 x 4 and Tegaderm. 11:46:31 Post right femoral artery:stable 11:46:32 Post Procedure Pulses reassessed and unchanged 11:46:35 Post procedure rhythm: unchanged. 11:46:37 Estimated blood loss: 5 ml 11:47:54 Plavix 600 mg P.O. was administered by Zackery Stovall RN; for antiplatelet therapy; 11:48:02 Post procedure instruction explained to patient.Patient verbalizes understanding. 11:48:02 Patient needs reinforcement of post procedure teaching. 11:48:12 Procedure type changed to Cath procedure, Diagnostic procedure, LHC, LHC w/Coronaries, Sedation Charges, Moderate Sedation up to 15 minutes, PCI procedure, Coronary Stent, Coronary Stent Initial 11:48:13 Procedure and supply charges have been captured, reviewed, submitted and are correct. 11:48:17 Procedure Complication : No complications 11:48:19 Vital chart was stopped 11:48:19 See physician's report for complete and final results. 11:48:22 Report given to Pre/Post Procedure Room. 11:48:24 Patient transfered to Pre/Post Procedure Room with Stretcher. 11:48:27 Procedure ended. 11:48:27 Full Disclosure recording stopped 11:48:36 ACC-PCI Only Patient was given prescriptions, or instructed by Don Zamudio MD to start/continue the following medications upon discharge: Plavix 11:48:37 End room use (Document Last) Intervention Summary Intervention Notes Time ActionType Lesion and Equipment Used Action# Pressure Duration Attributes 11:43:54 Place stent Ramus AP RX 2.5 x 1 13 00:10 26 stent ([id number]) Device Usage Item Name Manufacture Quantity Catalog Number Hospital Part Current M inimal Lot# / Charge Number Stock Stock Serial# Code ACIST Syringe Acist 1 68145 127891 739628 889909 2 0 (93614) Medical Systems Inc Bag Decanter Microtek 1 2001S 335826 40988 677457 5 () Medical Inc. Medline Cath Medline 1 [id number] 469695 63817 907510 5 Pack ([id number]) DIAGNOSTIC St Maximiliano 1 491273 281884 761614 008029 3 0 WIRE .035 260cm J wire (813781) ACIST Hand Acist 1 58269 109415 310603 374623 5 Control Medical (29924) Systems Inc ACIST Manifold Acist 1 97578 980427 977555 023232 5 (28088) Medical Systems Inc Tegaderm 4 x 4 3M 1 1626W 272032 304759 375866 5 (1626W) Medtronic Advanced Diamond Technologiestronic 1 [id number] 279359 242800 5 Dexterity 5Fr Pigtail catheter(NO COST SUPPLY) DIAGNOSTIC JL Cardinal 1 [id number] 480754 886497 593616 5 5 5Fr catheter Health (819476B) DIAGNOSTIC Cardinal 1 [id number] 241906 570621 922869 9 3DRC 5Fr Health catheter (963482A) CHOICE PT [place] 1 [id number] 073869 874900 815477 5 Extra Support Scientific 182cm wire ([id number]) INFLATOR Merit Merit 1 GP5708 160593 372670 311140 1 5 [employer] Medical (ZP4450) SHEATH 6FR Terumo 1 IFA904 434775 722005 716749 4 0 Bruno (BQZ336) GUIDE 6FR EBU Medtronic 1 [id number] 713714 23068 352323 0 4.5 catheter (DD0TRS78) AP RX 2.5 x Medtronic 1 [id number] 662800 1313951 169299 5 [id number] 26 stent ([id number]) EXOSEAL 6Fr Cardinal 1 EX600 962503 788973 185614 1 0 (EX600) Health Signature Audit Independence Stage Time Signature Unsigned Intra-Procedure 02/26/2018 Jacqueline Merida 11:50:09 AM RT(R) Signatures Monitor : Jacqueline Merida RT Signature : Date : Time : [id number] [place] [address]
[~2018-02-26 08:52] MED LIST changes: +BETAPACE 80 MG80 MG PO; +XARELTO10 MG PO
[2018-02-26 09:26] VITALS: BP 163/79; Ht 180.3 cm; Wt 108.6 kg
[2018-02-26 09:28] LABS: BASOPHILS 0.6 % (0-2); EOSINOPHILS 6.1 % (0-7); HEMATOCRIT 44.3 % (42.0-54.0); HEMOGLOBIN 15.6 g/dL (13.5-17.5); IMMATURE GRANULOCYTES 0.2 % (0-5); LYMPHOCYTES 19.1 % (15-50); MCH 32.2 pg (26.0-34.0); MCHC 35.2 g/dL (31.0-37.0); MCV 91.3 fL (80.0-100.0); MEAN PLATELET VOLUME 10.8 fL (7.4-10.4); MONOCYTES 12.4 % (2-11); NEUTROPHILS 61.6 % (40-80); PLATELET COUNT 152 10x3/uL (130-400); RBC 4.85 10x6/uL (4.20-6.10); RDW 12.8 % (11.5-14.5); WBC 4.9 10x3/uL (4.8-10.8)
[2018-02-26 09:37] LABS: ANION GAP 10.2 mmol/L (8-16); CALCIUM 8.8 mg/dL (8.5-10.1); CARBON DIOXIDE 31.2 mmol/L (21.0-32.0); CREATININE - SERUM 1.2 mg/dL (0.6-1.3); POTASSIUM - SERUM 3.4 mmol/L (3.5-5.1)
== END | disposition home or self-care (01) ==
LOC: D.CATH 08:52
PROVIDERS: Internal Medicine Interventional Cardiology
DX: I25.119 Atherosclerotic heart disease of native coronary artery with unspecified angina pectoris (principal); Z95.5 Presence of coronary angioplasty implant and graft; Z01.812 Encounter for preprocedural laboratory examination
CPT/HCPCS: 93458; C9600

== ENCOUNTER → 2018-04-08 13:50 | Outpatient (CLI) | payer MEDICARE, OTHER ==
[2018-02-26 09:26] VITALS: BMI 33.4
== END | disposition home or self-care (01) ==
LOC: D.MRI 13:50
DX: M75.101 Unspecified rotator cuff tear or rupture of right shoulder, not specified as traumatic (principal)

== ENCOUNTER 2018-09-22 11:24 | Observation (INO) | payer MEDICARE, OTHER ==
[~2018-09-22] VITALS: Ht 180.3 cm; Wt 110.9 kg
--- NOTE | ~2018-09-22 | HEMODYNAMI ---
PATIENT:REGINO AKERS MEDICAL RECORD: [id number] : 43 [id number] ADMISSION DATE: 09/22/18 Generatedon:09/22/201817:27 Patient name: REGINO AKERS Patient #: [id number] SSN: : 1945 Date of study: 09/22/2018 Page: Of Hemodynamic Procedure Report Patient Data Patient Demographics Procedure consent was obtained First Name: REGINO Gender: Male Last Name: DELPHINE : 1945 Middle Initial: H Age: 73 year(s) Patient #: [id number] Race: Unknown Additional ID: [id number] Contact details [address]: [address] [place] [address] State: [place] City: [place] Zip code: [address] Past Medical History Allergies Allergen Reaction Date Comments Reported Other allergy 02/10/2017 Sulfa Other allergy 09/22/2018 ATACAND, SULFA Admission Admission Data Admission Date: 09/22/2018 Admission Time: 11:24 Room #: D.2117 Height (in.): 70.87 BSA: 2.29 (m2) Height (cm.): 180 BMI: 34.26 (kg/m2) Weight (lbs.): 244.71 Weight (kg.): 111 Lab Results Lab Result Date: 09/22/2018 Lab Result Time: 0:00 Biochemistry Name Units Result Min Max BUN mg/dl 26 --(----)-* 7 18 Creatinine mg/dl 1.6 --(----)-* 0.6 1.3 CBC Name Units Result Min Max Hematocrit % 43.5 --(*---)-- 42 54 Hemoglobin g/dl 15.1 --(-*--)-- 13.5 17.5 Procedure Procedure Types Cath Procedure Diagnostic Procedure C [facility] w/Coronaries Sedation Charges Moderate Sedation up to 15 minutes PCI Procedure Coronary Stent Coronary Stent Initial Procedure Description Procedure Date Procedure Date: 09/22/2018 Procedure Start Time: 17:06 Procedure End Time: 17:26 Procedure Staff Name Function Don Zamudio MD Performing Physician Art Salazar RN Nurse Zackery Stovall RN Nuclear Medicine Officer Margarito Cote RT Scrub Maribel Valdivia RT Monitor Procedure Data Cath Procedure Fluoroscopy Diagnostic fluoroscopy Total fluoroscopy Time: 4.3 time: 4.3 min min Diagnostic fluoroscopy Total fluoroscopy dose: 920 dose: 920 mGy mGy Contrast Material Contrast Material Type Amount (ml) Isovue 300 86 Entry Location Entry Primary Successful Side Size Upsize Upsize Entry Closure Succes sful Closure Location (Fr) 1 (Fr) 2 (Fr) Remarks Device Remarks Femoral Right 5 Fr 6 Fr Exoseal artery Short Estimated blood loss: 10 ml Diagnostic catheters Device Type Used For End Catheter Placement MULTIPACK Pigtail 5 Fr Procedure catheter MULTIPACK JL 4.0 5Fr Procedure catheter DIAGNOSTIC JL 5 5Fr Procedure catheter ([id number]) MULTIPACK 3DRC 5Fr Procedure catheter Procedure Complications No complications Procedure Medications Medication Administration Route Dosage Oxygen etCO2 Nasal cannula 2 l/min Heparin Flush Bag added to field 2 bags (1000units/500ml NS) 0.9% NaCl I.V. 100 ml/hr Lidocaine 2% added to field 20 Fentanyl I.V. 50 mcg Versed I.V. 1 mg Fentanyl I.V. 50 mcg Versed I.V. 1 mg Fentanyl I.V. 50 mcg Fentanyl I.V. 50 mcg Heparin Bolus I.V. 4000 units Hemodynamics Rest BSA: 2.29 (m2) HGB: 15.1 (g/dl) O2 Consumption: Estimated: 257.21 (ml/min) O2 Co nsumption indexed: Estimated:112.32 (ml/min/m) Heart Rate: 63 (bpm) Snapshots Pre Cath Intra NCS Post Cath Vital Signs Time Heart Resp SPO2 etCO2 NIBP (mmHg) Rhythm Pain Sedation Rate (ipm) (%) (mmHg) Status Level (bpm) 16:56:23 66 17 97 31.3 168/97(133) NSR 0 (11) 10(A) , No pain 17:00:37 70 16 100 30.6 143/92(114) NSR 0 (11) 10(A) , No pain 17:04:55 77 16 94 29.9 135/84(100) NSR 0 (11) 10(A) , No pain 17:09:09 66 17 97 38.1 127/77(100) NSR 0 (11) 9(A) , No pain 17:13:25 71 16 97 32.1 129/78(91) NSR 0 (11) 9(A) , No pain 17:17:43 75 17 96 37.3 116/68(101) NSR 0 (11) 9(A) , No pain 17:21:45 76 16 97 35.8 125/77(100) NSR 0 (11) 9(A) , No pain 17:26:01 66 9 97 36.6 127/78(106) NSR 0 (11) 9(A) , No pain Medications Time Medication Route Dose Verified Delivered Reason Notes Effectiveness by by 16:55:36 Oxygen etCO2 2 Don Art Per physician Nasal l/min Lizz Salazar RN cannula 16:55:44 Heparin Flush added 2 Don Art used for Bag to bags Lizz Salazar RN procedure (1000units/500ml field NS) 16:55:53 0.9% NaCl I.V. 100 Don Art Per physician ml/hr Lizz Salazar RN 16:56:05 Lidocaine 2% added 20ml Don Hudsony for local to vial Lizz Salazar RN anesthetic field 17:04:46 Fentanyl I.V. 50 Don Art for sedation mcg Lizz Salazar RN 17:04:52 Versed I.V. 1 mg Don Art for sedation Lizz Salazar RN 17:06:44 Fentanyl I.V. 50 Don Art for sedation mcg Lizz Salazar RN 17:06:47 Versed I.V. 1 mg Don Art for sedation Lizz Salazar RN 17:08:17 Fentanyl I.V. 50 Don Art for sedation mcg Lizz Salazar RN 17:16:56 Fentanyl I.V. 50 Don Art for sedation mcg Lizz Salazar RN 17:18:08 Heparin Bolus I.V. 4000 Don Art for units Lizz Salazar RN anticoagulation Procedure Log Time Note 16:35:07 Zackery Stovall RN sent for patient. Start room use. 16:35:23 Signed procedure consent form obtained from patient. 16:35:24 Diagnostic Cath status Urgent 16:35:25 Time tracking: Regular hours (M-F 7:00 - 5:00) 16:35:28 Plan of Care:Hemodynamics will remain stable., Cardiac rhythm will remain stable., Comfort level will be maintained., Respiratory function will remain adequate., Patient/ family verbilizes understanding of procedure., Procedure tolerated without complication., Recovers from procedure without complications.. 16:35:59 Patient Weight : 244.71 lbs 16:36:04 Patient Height : 70.87 inches 16:48:03 Patient received from Med II to [facility] 2 Alert and oriented. Tansferred to table in Supine position. 16:48:04 Warm blankets applied, and brenda hugger turned on for patient comfort. 16:48:05 Correct patient and procedure confirmed by team. 16:48:05 ECG and BP/O2 sat monitors applied to patient. 16:55:17 Vital chart was started 16:55:36 Oxygen 2 l/min etCO2 Nasal cannula was administered by Art Salazar RN; Per physician; 16:55:44 Heparin Flush Bag (1000units/500ml NS) 2 bags added to field was administered by Art Salazar RN; used for procedure; 16:55:53 0.9% NaCl 100 ml/hr I.V. was administered by Art Salazar RN; Per physician; 16:56:05 Lidocaine 2% 20ml vial added to field was administered by Art Salazar RN; for local anesthetic; 16:59:11 Baseline sample Acquired. 16:59:19 Rhythm: atrial flutter 16:59:20 Full Disclosure recording started 16:59:20 Pre-procedure instructions explained to patient. 16:59:21 Pre-op teaching completed and patient verbalized understanding. 16:59:22 Family in patients room. 16:59:45 Patient allergic to Other allergyATACAND, SULFA 16:59:48 Is patient on blood thinner?Yes 16:59:50 ACC The patient was administered the following blood thiners within the last 24 hours: ACCPlavix 16:59:52 Patient diabetic? No. 17:00:05 Previous problem with sedation/anesthesia? No ? 17:00:06 Snore? Yes 17:00:07 Sleep apnea? Yes 17:00:09 Deviated septum? No 17:00:11 Opens mouth fully? Yes 17:00:12 Sticks out tongue? Yes 17:00:14 Airway obstruction? No ? 17:00:15 Dentures? No ? 17:00:17 Pre procedure: right dorsailis pedis pulse 2+ Normal; easily identifiable; not easily obliterated 17:00:19 Patient pain scale 0/10 ?. 17:00:24 IV patent on arrival in left hand with 0.9% NaCl at [facility]. 17:00:27 Lab results completed and on chart. 17:01: Lab Result : BUN 26 mg/dl 17:: Lab Result : Hemoglobin 15.1 g/dl 17:01: Lab Result : Creatinine 1.6 mg/dl 17:01: Lab Result : Hematocrit 43.5 % 17:01:05 Right groin area was prepped with chlora-prep and draped in sterile fashion 17:01:07 Alarms reviewed by R. N. 17:01:07 Sharps counted by scrub and verified by R.N. 17:01:09 Use device set Femoral Dx 17:01:10 ACIST Syringe (81738) opened to sterile field. 17:01:12 Bag Decanter (2002S) opened to sterile field. 17:01:12 ACIST Hand Control (85562) opened to sterile field. 17:01:13 ACIST Manifold (17795) opened to sterile field. 17:01:14 Tegaderm 4 x 4 (1626W) opened to sterile field. 17:01:15 Medline Cath Pack ([id number]) opened to sterile field. 17:01:17 DIAGNOSTIC WIRE .035 260cm J wire (772346) opened to sterile field. 17:01:19 DIAGNOSTIC Multipack 5Fr catheter set (FK1342) opened to sterile field. 17:01:19 SHEATH 5FR [place] (LRV268) opened to sterile field. 17:04:26 --------ALL STOP TIME OUT------ 17:: Final Timeout: patient, procedure, and site verified with staff and physician. All members of the team are in agreement. 17:04:28 Right groin site verified by team. 17:04:31 Maximum allowable Isovue 300 dose 300ml. Physician notified. (300ml for normal creatinines. For patients with creatinine of 1.7 or higher multiply weight(kg) x 5 divided by creatinine.) 17:04:34 Fire Safety Assessment: A--An alcohol-based skin anteseptic being used preoperatively., C--Open oxygen or nitrous oxide is being used., D--An ESU, laser, or fiber-optic light is being used. 17:04:46 Fentanyl 50 mcg I.V. was administered by Art Salazar RN; for sedation; 17:04:46 Physical assessment completed. ASA score P 2 - A patient with mild systemic disease as per Don Zamudio MD. 17:04:49 Sedation plan: IV Moderate Sedation Medication:Versed, Fentanyl 17:04:52 Versed 1 mg I.V. was administered by Art Salazar RN; for sedation; 17:05:57 Procedure started. 17:06:20 Local anesthetic to right femoral artery with Lidocaine 2% by Don Zamudio MD.INITIAL ACCESS ONLY 17:06:44 Fentanyl 50 mcg I.V. was administered by Art Salazar RN; for sedation; 17:06:47 Versed 1 mg I.V. was administered by Art Salazar RN; for sedation; 17:07:43 A 5 Fr sheath was inserted into the Right Femoral artery 17:08:00 A MULTIPACK Pigtail 5 Fr catheter was advanced over the wire and used for Procedure. 17:08:07 LV gram done using SILVA 17:08:17 Fentanyl 50 mcg I.V. was administered by Art Salazar RN; for sedation; 17:08:27 Injector settings: Ml/sec: 10, Volume: 20, 17:08:40 EF : 50 % 17:08:41 Catheter removed. 17:08:56 A MULTIPACK JL 4.0 5Fr catheter was advanced over the wire and used for Procedure. 17:09:50 Catheter removed. 17:10:00 UNABLE TO ENGAGE LCA 17:10:10 A DIAGNOSTIC JL 5 5Fr catheter ([id number]) was advanced over the wire and used for Procedure. 17:10:53 LCA angiography performed. 17:11:13 Catheter removed. 17:11:29 A MULTIPACK 3DRC 5Fr catheter was advanced over the wire and used for Procedure. 17:12:23 RCA angiography performed. 17:12:26 Catheter removed. 17:12:41 SHEATH 6FR [place] (CEB251) opened to sterile field. 17:12:42 CHOICE PT Extra Support 182cm wire ([id number]) opened to sterile field. 17:12:48 INFLATOR Merit BasixCompak (HO5007) opened to sterile field. 17:12:57 GUIDE 6FR EBU 5.0 catheter ([id number]) opened to sterile field. 17:13:14 Sheath upsized to a 6 Fr Short. 17:13:43 6 Fr EBU 5 guide catheter was inserted over the wire 17:15:10 Guide Catheter removed. unable to cannulate vessel. 17:15:27 GUIDE 6FR JL 6.0 catheter (QB0HC14) opened to sterile field. 17:15:40 6 Fr JL 6 guide catheter was inserted over the wire 17:16:02 Guide Catheter removed. unable to cannulate vessel. 17:16:10 GUIDE 6FR EBU 4.5 catheter ([id number]) opened to sterile field. 17:16:44 6 Fr EBU 4.5 guide catheter was inserted over the wire 17:16:56 Fentanyl 50 mcg I.V. was administered by Art Salazar RN; for sedation; 17:17:53 CHOICE ES 182 wire advanced. 17:18:08 Heparin Bolus 4000 units I.V. was administered by Art Salazar RN; for anticoagulation; 17:18:12 Wire advanced across lesion. 17:18:50 Place stent Inflation Number: 1 A AP RX 2.25 x 12 stent ([id number]) was prepped and advanced across the Ramus 90. The stent was deployed at 12 CLIVE for 0:10 (min:sec) 0. 17:18:55 Stent catheter was removed intact over wire. 17:18:56 Wire removed. 17:18:56 Guide catheter removed. 17:19:08 EXOSEAL 6Fr (EX600) opened to sterile field. 17:19:26 Sheath removed intact; hemostasis achieved with Exoseal to the Right Femoral artery. 17:19:35 Procedure ended.(Physican Out) 17:20:20 Fluoroscopy time 04.30 minutes. 17:20:30 Flurop Dose total: 920 17:20:30 Fluoroscopy dose: 920 mGy 17:20:35 Contrast amount:Isovue 300 86ml. 17:20:36 Sharps counted by scrub and verified by R.N. 17:20:42 Post-op/insertion site Right Femoral artery dressed using a 4 x 4 and Tegaderm. 17:21:01 Post-procedure physical assessment completed. ASA score P 2 - A patient with mild systemic disease as per Don Zamudio MD. 17:21:05 Post procedure rhythm: unchanged. 17:21:08 Estimated blood loss: 10 ml 17:21:09 Post procedure instruction explained to patient.Patient verbalizes understanding. 17:21:10 Patient needs reinforcement of post procedure teaching. 17:21:50 Procedure type changed to Cath procedure, Diagnostic procedure, LHC, LHC w/Coronaries, Sedation Charges, Moderate Sedation up to 15 minutes, PCI procedure, Coronary Stent, Coronary Stent Initial 17:23:05 Procedure and supply charges have been captured, reviewed, submitted and are correct. 17:23:07 Procedure Complication : No complications 17:26:22 Vital chart was stopped 17:26:23 See physician's report for complete and final results. 17:26:25 Report given to [facility]. 17:26:27 Patient transfered to [facility] with Bed. 17:26:29 Procedure ended. 17:26:29 Full Disclosure recording stopped 17:26:32 End room use (Document Last) Intervention Summary Intervention Notes Time ActionType Lesion and Equipment Used Action# Pressure Duration Attributes 17:18:50 Place stent Ramus AP RX 2.25 x 1 12 00:10 12 stent ([id number]) Device Usage Item Name Manufacture Quantity Catalog Number Hospital Part Current M inimal Lot# / Charge Number Stock Stock Serial# Code ACIST Syringe Acist 1 19875 050506 843212 789096 2 0 (09343) Medical Systems Inc Bag Decanter Microtek 1 2001S 872121 60585 431750 5 (2001S) Medical Inc. ACIST Hand Acist 1 04217 609756 406888 334467 5 Control Medical (98321) Systems Inc ACIST Manifold Acist 1 07364 783207 984753 361443 5 (54642) Medical Systems Inc Tegaderm 4 x 4 3M 1 1626W 928490 439935 108089 5 (1626W) Medline Cath Medline 1 [id number] 956796 84144 877618 5 Pack ([id number]) DIAGNOSTIC St Maximiliano 1 030587 885892 548449 690386 3 0 WIRE .035 260cm J wire (979412) DIAGNOSTIC Cardinal 1 MN8938 394026 62656 486146 3 0 Multipack 5Fr Health catheter set (PL9223) SHEATH 5FR Terumo 1 GIT754 302133 587321 665644 5 [place] (FIU355) MULTIPACK Cardinal 1 188386 5 Pigtail 5 Fr Health catheter MULTIPACK JL Cardinal 1 110701 5 4.0 5Fr Health catheter DIAGNOSTIC JL Cardinal 1 [id number] 178570 055389 455928 5 5 5Fr catheter Health (995332H) MULTIPACK 3DRC Cardinal 1 871680 5 5Fr catheter Health SHEATH 6FR Terumo 1 OBG431 418437 605880 851995 4 0 [place] (CZZ796) CHOICE PT [place] 1 [id number] 830648 421527 500659 5 Extra Support Scientific 182cm wire ([id number]) INFLATOR Merit Merit 1 CV4918 136680 125623 660266 1 5 wongsang Worldwidems[employer] Medical (UQ5110) GUIDE 6FR EBU Medtronic 1 [id number] 540566 43754 555203 0 5.0 catheter (QA8LLZ71) GUIDE 6FR JL Medtronic 1 SW6WH09 193736 59934 456979 0 6.0 catheter (NT2VK40) GUIDE 6FR EBU Medtronic 1 [id number] 248754 78795 088981 0 4.5 catheter ([id number]) AP RX 2.25 x Medtronic 1 [id number] 627888 9095273 462542 5 [id number] 12 stent ([id number]) EXOSEAL 6Fr Cardinal 1 EX600 937334 580977 384776 1 0 (EX600) Health Signature Audit [place] Stage Time Signature Unsigned Intra-Procedure 09/22/2018 Maribel Valdivia 5:27:18 PM RT(R) Signatures Monitor : Maribel Valdivia Signature : RT Date : Time : [facility] [address] [place] [address]
--- NOTE | ~2018-09-22 | OP ---
PATIENT NAME: REGINO AKERS MEDICAL RECORD: [id number] :43 LOCATION:D.M2 D.2117 ADMISSION DATE:09/22/18 SURGEON: ELMO SMITH MD DATE OF OPERATION: 09/22/2018 PROCEDURES: 1. PTCA stent ramus intermedius. 2. Left heart catheterization. 3. Selective coronary angiography. 4. Left ventriculogram. INDICATION: Unstable angina and coronary artery disease. PROCEDURE IN DETAIL: After informed consent was obtained and after detailed description of risks, benefits as well as alternative therapies, the patient elected to proceed with angiogram and angioplasty. The right femoral area was prepped and draped in normal sterile fashion. Right femoral artery was cannulated via modified Seldinger technique with placement of 6-Djiboutian sheath. All catheters exchanged through this sheath. FINDINGS: Left ventriculogram was performed in standard 30-degree SILVA view, reveals good cardiac wall motion throughout all segments. Overall ejection fraction estimated at 50%. SELECTIVE CORONARY ANGIOGRAPHY: 1. Left main is with no significant angiographic disease. 2. Left anterior descending has previously placed stents, these are widely patent with no significant restenosis. 3. Left circumflex has a ramus intermedius with previously placed stents. There is 90% stenosis after the previously placed stents. 4. Right coronary has moderate irregularities, but no flow-limiting stenosis. PTCA STENT OF THE RAMUS INTERMEDIUS: The stent used was a 2.25 x 12 mm Antwon. Result was 0% residual stenosis. OVERALL IMPRESSION: Successful percutaneous transluminal coronary angioplasty stent of the ramus intermedius going from 90% initial stenosis to 0% residual. TRANSINT:[id number] Voice Confirmation ID: [id number] DOCUMENT ID: [id number] ELMO SMITH MD CC: [id number] DICTATION DATE: 09/22/181721 JUMP ROLL OPERATOR: 09/22/188 ADM IN [id number] [place] [address]
--- NOTE | ~2018-09-22 | CN ---
PATIENT NAME:REGINO AKERS MEDICAL RECORD: [id number] : 43 LOCATION:D. D.2117 ADMIT DATE: 09/22/18 ACCOUNT: [id number] CONSULTING PHYSICIAN: ELMO SMITH MD REFERRING PHYSICIAN: ROBERT MONET MD DATE OF CONSULTATION: 09/22/2018 ADMITTING DIAGNOSES: 1. Unstable angina. 2. Coronary artery disease. 3. Previous percutaneous transluminal coronary angioplasty and stent. 4. Paroxysmal atrial fibrillation. 5. Hypertension. HISTORY OF PRESENT ILLNESS: This is a gentleman who is well known to us with a past history of coronary artery disease, previous cardiac stents in 2016 and 2017 and the last being February 2018. He awoke with chest tightness. It resolved. He tried to do some work around the house. He had then the severe chest pain associated with diaphoresis and nausea and vomiting. He presented to his primary care physician's office and is continuing to have chest discomfort. Supposedly, had EKG changes in the inferior leads. We will try and track that EKG down. At that time, he was sent to the hospital. He was admitted, he has had more episodes of chest pain since admission. He is on optimal medical therapy with a beta-jaycee, BLANCA inhibitor, and calcium channel blockers and despite that has had chest pain, his heart rates in the 60s. Systolic blood pressure in the 110 range. There is a little room to work with any further medical management. He continues to have the chest discomfort. PHYSICAL EXAMINATION: GENERAL APPEARANCE: Well nourished, well developed, appears stated age. Level of distress, comfortable. PSYCHIATRIC: Mental status, alert, normal affect. Orientation, oriented to time, place and person. EYES: Lids and conjunctiva, noninjected. No discharge, no pallor. ENT: Lips, teeth, gums, normal dentition. Oropharynx, no cyanosis, no pallor. NECK: Carotid arteries, bilateral normal upstroke, no bruits, no thrills. JUGULAR VEINS: No jugular venous pressure or distention. CERVICAL LYMPH NODES: Nontender, nonenlarged. THYROID: Not enlarged. Nontender. No nodules. LUNGS: Respiratory effort, unlabored. CHEST: Normal curvature. No thoracic deformity. No chest wall tenderness. Percussion, resonant. Auscultation, clear. No wheezes, no rales, no rhonchi. CARDIOVASCULAR: Precordial exam, nondisplaced. No heaves or pericardial thrills. Rate and rhythm, regular. Heart sounds, normal S1, normal S2. No S3, no gallop, no rub. Systolic murmur, not heard. Diastolic murmur, not heard. EXTREMITIES: No cyanosis, no edema. Peripheral pulses, full and equal in all extremities, except as noted. No bruits appreciated. ABDOMEN: Soft, nondistended. Normal aorta. No bruit. Nontender. No masses. Liver, nontender, no hepatomegaly. Spleen, nontender, no splenomegaly. MUSCULOSKELETAL: No joint tenderness. No joint swelling. No erythema. NEUROLOGICAL: Normal gait, normal strength, normal tone. SKIN: Warm and dry. OVERALL IMPRESSION: Chest discomfort in an unstable rapidly progressive fashion, despite maximal medical management, he continues to have chest CONSULT REPORT [id number] REGINO AKERS discomfort and a past history of coronary artery disease, multivessel percutaneous transluminal coronary angioplasty and stent. We will proceed with coronary angiography. Further care depends upon findings of the angiography. TRANSINT:[id number] Voice Confirmation ID: [id number] DOCUMENT ID: [id number] ELMO SMITH MD CC: [id number] DICTATION DATE: 09/22/18 1632 ROLLER HELPER: 09/22/182230 ADM IN [facility] [address] [place] [address]
--- NOTE | ~2018-09-22 | EC ---
PATIENT:REGINO AKERS DATE OF SERVICE: 09/22/18 SEX: M MEDICAL RECORD: [id number] DATE OF : 43 LOCATION:D.M2 D.211 AGE OF PATIENT: 73 ADMISSION DATE: 09/22/18 REFERRING PHYSICIAN: INTERPRETING PHYSICIAN: ELMO ZAMUDIO MD ECHOCARDIOGRAM REPORT ECHO CHARGES 4 ECHO COMPLETE Date: 09/22/18 CLINICAL DIAGNOSIS: SOB ECHOCARDIOGRAPHIC MEASUREMENTS (adult normal given) AC root (d.<3.7cm) 3.2 cm LV Septum d (<1.2 cm> 1.4 cm Valve Excursion 1.4 cm LV Septum (systole) 1.7 cm Left Atria (s.<4.0cm> 3.0 cm LVPW d(<1.2cm) 1.1 cm RV (d.<2.3cm) 3.6 cm LVPW (sytole) 1.5 cm LV diastole(<5.6CM) 5.6 cm MV E-F(>70mm/sec) cm LV systole 4.3 cm LVOT Diameter 2.2 cm MV exc.(>10mm) cm Est.ejection fraction (50-75%) % DOPPLER: LVIT cm/sec A 69 cm/sec E 56 cm/sec LA cm/sec RVSP 24.4 mmHg LVOT 77 cm/sec AOP1/2T m/s Asc. Ao 148 cm/sec RVOT 62 cm/sec RA cm/sec PA 99 cm/sec AV Gradient Peak 8.8 mmHg AV Mean 6.2 mmHg AV Area 1.7 cm MV Gradient Peak 2.1 mmHg MV Mean 1.1 mmHg MV Area cm COMMENTS: Anti Tank Missileman: Ang[facility] Ibm Bpm Developer: 1 Dr. Zamudio TAPE# PACS Pericardial Effusion N DATE OF SERVICE: 09/22/2018 FINDINGS: 1. Left ventricular chamber size is within normal limits. Left ventricular systolic function is normal. Overall ejection fraction is estimated at 55%. 2. Left atrium is within normal limits at 4.0 cm. Right atrium and right ventricular chamber sizes are mildly dilated. 3. Valvular structures have normal structure and motion. 4. Doppler interrogation reveals only trace tricuspid regurgitation. No other valvular insufficiency or stenosis. Pulmonary systolic pressure is estimated at ECHOCARDIOGRAM REPORT [id number] REGINO AKERS 24 mmHg. 5. No evidence of pericardial effusion or left ventricular thrombus. TRANSINT:[id number] Voice Confirmation ID: [id number] DOCUMENT ID: [id number] ELMO ZAMUDIO MD CC: [id number] DICTATION DATE: 09/22/18 172 FURNACE CLERK: 09/22/[address] [facility] [address] [id number]
[~2018-09-22 11:24] MED LIST changes: -FLINTSTONE1 TAB.CHEW; +FLINTSTONES WIT18 MG PO
--- NOTE | 2018-09-22 12:00 | NUR ---
PT ARRIVED TO FLOOR A DIRECT ADMIT. KAREN MORRISON AT BEDSIDE COMPLETING ADMISSION HISTORY AND QUICK START FOR ME. PT IS A&O AMBULATING TO BED WITH FAMILY AT BEDSIDE. WILL GET VITALS REVIEW CHART AND ORDERS AND CPOC.
--- NOTE | 2018-09-22 12:31 | NUR ---
PT STATES HE ALREADY TOOK HIS PLAVIX THIS AM. NOT NEEDED.
[2018-09-22 12:51] LABS: BASOPHILS 0.6 % (0-2); EOSINOPHILS 4.2 % (0-7); HEMATOCRIT 43.5 % (42.0-54.0); HEMOGLOBIN 15.1 g/dL (13.5-17.5); IMMATURE GRANULOCYTES 0.6 % (0-5); LYMPHOCYTES 20.2 % (15-50); MCH 31.8 pg (26.0-34.0); MCHC 34.7 g/dL (31.0-37.0); MCV 91.6 fL (80.0-100.0); MEAN PLATELET VOLUME 10.6 fL (7.4-10.4); MONOCYTES 13.1 % (2-11); NEUTROPHILS 61.3 % (40-80); PLATELET COUNT 148 10x3/uL (130-400); RBC 4.75 10x6/uL (4.20-6.10); RDW 12.8 % (11.5-14.5); WBC 6.6 10x3/uL (4.8-10.8)
[2018-09-22 12:53] VITALS: BP 119/73
[2018-09-22 12:59] LABS: APTT 28.8 SECONDS (22.8-39.4); INR 1.12 (0.85-1.17); PROTIME 13.9 SECONDS (11.6-15.0)
--- NOTE | 2018-09-22 13:00 | NUR ---
FIRST EKG DONE PER ORDER AND PLACED IN CHART. PT STABLE RESTING QUIETLY IN BED. NPO UNTIL SEEN BY . PT DENIES ANY CURRENT CHEST PAIN OR NEEDS. STUDENT NURSE AT BEDSIDE OBTAINED L.HAND PIV X1 STICK. PIV IS SL AND FLUSHES WITHOUT ANY ISSUES. NO CURRENT NEEDS. WILL CTM.
[2018-09-22 13:25] LABS: ALBUMIN 3.5 g/dL (3.4-5.0); ALKALINE PHOSPHATASE 57 U/L (46-116); ALT (SGPT) 23 U/L (10-68); AMYLASE - SERUM 40 U/L (25-115); BILIRUBIN - TOTAL 0.46 mg/dL (0.2-1.3); C-REACTIVE PROTEIN 0.5 mg/dL (0.0-0.9); CALC OSMOLALITY 278 mosm/kg (275-300); CALCIUM 8.9 mg/dL (8.5-10.1); CARBON DIOXIDE 25.4 mmol/L (21.0-32.0); CHLORIDE - SERUM 103 mmol/L (98-107); CKMB 1.1 U/L (0.0-3.6); CREATINE KINASE 56 UL (21-232); CREATININE - SERUM 1.6 mg/dL (0.6-1.3); GLUCOSE 103 mg/dL (74-106); LIPASE 422 U/L (73-393); POTASSIUM - SERUM 4.2 mmol/L (3.5-5.1); PROTEIN - SERUM 6.5 g/dL (6.4-8.2); SODIUM 137 mmol/L (136-145); THYROID STIMULATING HORMONE 2.67 uIU/mL (0.36-3.74); TROPONIN-I < 0.017 ng/mL (0.000-0.060); UREA NITROGEN 26 mg/dL (7-18); eGFR NON AFRICAN AMERICAN 45 mL/min (90-120)
[2018-09-22 15:08] VITALS: BP 117/74
[2018-09-22 15:09] VITALS: BP 119/73; Ht 180.3 cm; Wt 110.9 kg
--- NOTE | 2018-09-22 15:18 | NUR ---
PT REMAINS NPO WAITING TO BE SEEN AGAIN BY . TELEMETRY IN PLACE ORDERED. PT DENIES ANY CURRENT NEEDS. FAMILY AT BEDSIDE. WILL CTM.
--- NOTE | 2018-09-22 16:43 | NUR ---
CAME BY TO SEE PT AND DECIDED TO DO A CARDIAC CATH. CONSENTS OBTAINED AND PLACED IN CHART. FAMILY AT BEDSIDE AND VERBALIZED UNDERSTANDING. PRE-OP MEDICATIONS GIVEN AND CATH TEAM HERE FOR PT. PT NOW LEAVING OUR UNIT NO CURRENT NEEDS.
--- NOTE | 2018-09-22 17:50 | NUR ---
PT BACK FROM [facility] LYING FLAT IN BED. FAMILY SURROUNDING BEDSIDE. TELEMETRY BACK IN PLACE. VSS AND BEING MONITERED PER POST PROCEDURE POLICY. PT HAS DRSG TO HIS R.GROIN THAT IS CDI NO S/S OF BLEEDING OR HEMATOMA NOTED. PERIPHERAL PULSES INTACT. NS INFUSING VIA L.HAND PIV @100ML/HR. PT DENIES ANY CURRENT PAIN OR NEEDS AT THIS TIME. CL IN REACH. WILL CTM.
[2018-09-22 17:52] VITALS: BP 127/79
--- NOTE | 2018-09-22 18:01 | NUR ---
R.GROIN REMAINS CDI NO HEMATOMA OR BLEEDING NOTED. PERIPHERAL PULSES INTACT. VSS AND BEING MONITERED. PT RUNNING CONTROLLED ATRIAL FIB ON THE MONITER. WILL CTM.
--- NOTE | 2018-09-22 19:04 | NUR ---
NIC DRSG CDI NO HEMATOMA OR S/S OF BLEEDING NOTED. VSS. PT REMAINS LYING FLAT IN BED. DENIES ANY CURRENT PAIN OR NEEDS. FAMILY AT BEDSIDE. WILL CTM.
[2018-09-22 20:00] VITALS: BP 118/65
[2018-09-23 00:29] LABS: APPEARANCE CLEAR (CLEAR); BILIRUBIN NEGATIVE (NEGATIVE); COLOR YELLOW (YELLOW); GLUCOSE NEGATIVE (NEGATIVE); KETONE NEGATIVE (NEGATIVE); NITRITE NEGATIVE (NEGATIVE); PROTEIN NEGATIVE (NEGATIVE); SPECIFIC GRAVITY 1.015 (1.005-1.020); UROBILINOGEN NORMAL (NORMAL)
[2018-09-23 01:20] LABS: CKMB 0.8 U/L (0.0-3.6); CREATINE KINASE 43 UL (21-232); TROPONIN-I < 0.017 ng/mL (0.000-0.060)
[2018-09-23 04:00] VITALS: BP 125/62
--- NOTE | 2018-09-23 04:48 | NUR ---
INFORMED BY UNEMPLOYMENT SPECIALIST THAT PATIENT CONVERT FROM AFIB/A FLUTTER TO SINUS JOANNE. HR 54.
[2018-09-23 05:47] LABS: BASOPHILS 0.3 % (0-2); EOSINOPHILS 3.7 % (0-7); HEMATOCRIT 42.8 % (42.0-54.0); HEMOGLOBIN 14.9 g/dL (13.5-17.5); LYMPHOCYTES 21.8 % (15-50); MCH 31.9 pg (26.0-34.0); MCHC 34.8 g/dL (31.0-37.0); MCV 91.6 fL (80.0-100.0); MEAN PLATELET VOLUME 10.9 fL (7.4-10.4); MONOCYTES 11.4 % (2-11); NEUTROPHILS 61.8 % (40-80); PLATELET COUNT 153 10x3/uL (130-400); RBC 4.67 10x6/uL (4.20-6.10); RDW 12.9 % (11.5-14.5); WBC 5.9 10x3/uL (4.8-10.8)
[2018-09-23 06:16] LABS: ALBUMIN 3.1 g/dL (3.4-5.0); BILIRUBIN - TOTAL 0.64 mg/dL (0.2-1.3); CALCIUM 8.3 mg/dL (8.5-10.1); CARBON DIOXIDE 26.8 mmol/L (21.0-32.0); CREATININE - SERUM 1.6 mg/dL (0.6-1.3); POTASSIUM - SERUM 4.8 mmol/L (3.5-5.1); PROTEIN - SERUM 6.4 g/dL (6.4-8.2)
[2018-09-23 09:23] VITALS: BP 119/69
[2018-09-23] MEDS ORDERED: NORVASC10 MG PO (09:25)
[2018-09-23] MEDS ORDERED: ALDACTONE25 MG PO (09:25)
--- NOTE | 2018-09-23 11:37 | NUR ---
D/C PTS L.HAND PIV WITH CATHETER TIP FULLY INTACT. DISCHARGE TEACHING PROVIDED AND PAPERS SIGNED. PT VERBALIZED UNDERSTANDING AND DENIES ANY QUESTIONS OR CONCERNS. RETURNED TO [facility]. ALL BELONGINGS COLLECTED AND SENT WITH PT. FAMILY AT BEDSIDE FOR TRANSPORTATION AND PT IS NOW BEING ESCORTED DOWN TO LOBBY AT THIS TIME.
--- NOTE | 2018-09-23 15:36 | MORECARE ---
CASE MANAGEMENT DISCHARGE SUMMARY PATIENT: REGINO AKERS H UNIT: [id number] ADM DATE: 09/22/18 AGE: 73 : 43 SEX: M ROOM/BED: D.2117 AUTHOR: MARY SAWYER PHYSICIAN: REFERRING PHYSICIAN: ROBERT MONET MD DATE OF SERVICE: 09/23/18 Discharge Plan Patient Name: REGINO AKERS Facility: [facility] : 1945 Planned Disposition: Home Anticipated Discharge Date: 09/23/18 Discharge Date: 09/23/2018 Expected LOS: 1 Initial Reviewer: [email or web address] Initial Review Date: 09/23/2018 Generated: 09/23/18 4:36 pm Patient Name: REGINO AKERS Page [id number] at 1536 All edits/amendments must be made on the electronic document DICTATION DATE: 09/23/18 1535 CLOUD PHYSICIST: 09/23/18 1535 RPT#: [id number] DC DATE:09/23/18 STATUS: DIS IN [facility] [address] [place] [address] END OF REPORT
== END 2018-09-23 11:41 | disposition home or self-care (01) ==
LOC: D.M2 11:24 → OBSVTIME 11:24 → D.M2 09-23 11:41
PROVIDERS: Internal Medicine Nephrology; ADMIT Family Medicine; ATTEND Family Medicine
DX: I25.110 Atherosclerotic heart disease of native coronary artery with unstable angina pectoris (principal); I10 Essential (primary) hypertension; E78.5 Hyperlipidemia, unspecified
CPT/HCPCS: 93458; C9600

== ENCOUNTER 2018-09-28 15:38 | Observation (INO) | payer MEDICARE, OTHER ==
[~2018-09-28] VITALS: Ht 180.3 cm; Wt 110.7 kg
--- NOTE | ~2018-09-28 | CN ---
PATIENT NAME:REGINO GALEAS MEDICAL RECORD: [id number] : 43 LOCATION:D. D.2121 ADMIT DATE: 09/28/18 ACCOUNT: [id number] CONSULTING PHYSICIAN: ELMO SMITH MD REFERRING PHYSICIAN: ROBERT MONET MD DATE OF CONSULTATION: 09/28/2018 DIAGNOSES: 1. Chest pain. 2. Coronary artery disease. 3. Previous PTCA and stent. 4. GERD. 5. Hypertension. 6. Hyperlipidemia. 7. Paroxysmal atrial fibrillation. HISTORY OF PRESENT ILLNESS: Mr. Galeas presents with chest pain. It is different than that of his previous angina. He presented last week with anginal pain. He was found to have critical disease of his circumflex and ramus intermedius. He underwent successful PTCA and stent of this territory. He has been off his CPAP. He also has very significant GERD. He presents with a burning-like chest pain at this time. He is pain free now. His troponin is normal. His EKG is normal. PHYSICAL EXAMINATION: GENERAL APPEARANCE: Well-nourished, well-developed, appears stated age. Level of distress, comfortable. PSYCHIATRIC: Mental status, alert, normal affect. Orientation, oriented to time, place and person. EYES: Lids and conjunctiva, noninjected. No discharge, no pallor. ENT: Lips, teeth, gums, normal dentition. Oropharynx, no cyanosis, no pallor. NECK: Carotid arteries, bilateral normal upstroke, no bruits, no thrills. JUGULAR VEINS: No jugular venous pressure or distention. CERVICAL LYMPH NODES: Nontender, nonenlarged. THYROID: Not enlarged. Nontender. No nodules. LUNGS: Respiratory effort, unlabored. CHEST: Normal curvature. No thoracic deformity. No chest wall tenderness. Percussion, resonant. Auscultation, clear. No wheezes, no rales, no rhonchi. CARDIOVASCULAR: Precordial exam, nondisplaced. No heaves or pericardial thrills. Rate and rhythm, regular. Heart sounds, normal S1, normal S2. No S3, no gallop, no rub. Systolic murmur, not heard. Diastolic murmur, not heard. EXTREMITIES: No cyanosis, no edema. Peripheral pulses, full and equal in all extremities, except as noted. No bruits appreciated. ABDOMEN: Soft, nondistended. Normal aorta. No bruit. Nontender. No masses. Liver, nontender, no hepatomegaly. Spleen, nontender, no splenomegaly. MUSCULOSKELETAL: No joint tenderness. No joint swelling. No erythema. NEUROLOGICAL: Normal gait, normal strength, normal tone. SKIN: Warm and dry. OVERALL IMPRESSION: Chest pain, most likely not anginal in symptomatology, most likely GERD. His GI-directed medications have been increased. He is not having any AFib now. He is pain free now. I do not feel the need for repeat cardiac catheterization at this time. TRANSINT:[id number] Voice Confirmation ID: [id number] DOCUMENT ID: [id number] CONSULT REPORT [id number] REGINO GALEAS JEFFREY MD CC: [id number] DICTATION DATE: 09/28/18 170 OPEN HEARTH FURNACE OPERATOR: 09/28/18 [address] [facility] [address] [id number]
[~2018-09-28 15:38] MED LIST changes: +ALDACTONE25 MG PO
[2018-09-28] MEDS ORDERED: FUROSEMIDE20 MG PO (16:01)
[2018-09-28] MEDS ORDERED: NEXIUM40 MG PO (16:42)
[2018-09-28 16:47] LABS: BASOPHILS 0.5 % (0-2); EOSINOPHILS 4.9 % (0-7); HEMATOCRIT 42.6 % (42.0-54.0); HEMOGLOBIN 14.9 g/dL (13.5-17.5); IMMATURE GRANULOCYTES 1.1 % (0-5); LYMPHOCYTES 22.3 % (15-50); MCH 31.9 pg (26.0-34.0); MCV 91.2 fL (80.0-100.0); MONOCYTES 14.2 % (2-11); PLATELET COUNT 155 10x3/uL (130-400); RBC 4.67 10x6/uL (4.20-6.10); RDW 12.7 % (11.5-14.5); WBC 5.6 10x3/uL (4.8-10.8)
--- NOTE | 2018-09-28 17:09 | NUR ---
FIRST EKG PERFORMED ORDERED AND SHOWN TO AT BEDSIDE FOR CONSULT. TELEMETRY APPLIED AND PT RUNNING SINUS BRADYCARDIC @55BPM. 20 GUAGE PIV INSERTED TO R.FA X2 STICKS AND IS SALINE LOCKED. PT C/O ACHING PRESSURE HEADACHE REQUESTING AND PROVIDED WITH PRN TYLENOL. PT VOICED THANKS. NO CURRENT NEEDS WILL FINISH ADMISSION WORK UP.
[2018-09-28 17:11] LABS: ALBUMIN 3.4 g/dL (3.4-5.0); ALKALINE PHOSPHATASE 59 U/L (46-116); ALT (SGPT) 21 U/L (10-68); BILIRUBIN - TOTAL 0.44 mg/dL (0.2-1.3); CALC OSMOLALITY 276 mosm/kg (275-300); CALCIUM 9.3 mg/dL (8.5-10.1); CHLORIDE - SERUM 101 mmol/L (98-107); CKMB 1.9 U/L (0.0-3.6); CREATINE KINASE 60 UL (21-232); CREATININE - SERUM 1.6 mg/dL (0.6-1.3); GLUCOSE 96 mg/dL (74-106); POTASSIUM - SERUM 4.4 mmol/L (3.5-5.1); PROTEIN - SERUM 6.9 g/dL (6.4-8.2); SODIUM 137 mmol/L (136-145); UREA NITROGEN 22 mg/dL (7-18); eGFR NON AFRICAN AMERICAN 45 mL/min (90-120)
[2018-09-28 17:15] LABS: TROPONIN-I < 0.017 ng/mL (0.000-0.060)
--- NOTE | 2018-09-28 19:37 | NUR ---
ASSESSMENT COMPLETE, PT A&O. RESPERATIONS EVEN ON RA. IV TO RIGHT FOREARM SL, IV SITE CLEAN AND DRY. PT CURRENTLY DENIES PAIN OR NEEDS. MULTIPLE FAMILY MEMBERS AT BED SIDE, BED LOW, CL IN REACH.
[2018-09-28 20:00] VITALS: BP 135/70
--- NOTE | 2018-09-28 21:17 | NUR ---
HS MEDS GIVEN WITH FRESH ICE WATER, POTASSIUM HELD DUE TO LAB LEVEL OF 4.4 AND BETAPACE HELD DUE TO HR OF 58 ON TELEMETRY. PT DENIES PAIN OR NEEDS, BED LOW, CL IN REACH.
[2018-09-28 22:22] VITALS: Ht 180.3 cm; Wt 110.7 kg
[2018-09-28 22:40] LABS: CKMB 1.7 U/L (0.0-3.6); CREATINE KINASE 113 UL (21-232); TROPONIN-I < 0.017 ng/mL (0.000-0.060)
[2018-09-29] VITALS: BP 111/60
--- NOTE | 2018-09-29 00:26 | NUR ---
RESTING WITH EYES CLOSED, RESPERATIONS EVEN, NO S/S DISTRESS NOTED.
--- NOTE | 2018-09-29 03:03 | NUR ---
I have reviewed this patient and I concur with the Shift Assessment completed by the Licensed Practical Nurse today this shift.
--- NOTE | 2018-09-29 03:33 | NUR ---
EYES CLOSED, PT RESTING ON LEFT SIDE, RESPERATIONS NON LABORED. BED LOW, CL IN REACH.
[2018-09-29 04:00] VITALS: BP 135/75
[2018-09-29 05:10] LABS: BASOPHILS 0.6 % (0-2); EOSINOPHILS 5.4 % (0-7); HEMATOCRIT 40.9 % (42.0-54.0); HEMOGLOBIN 14.1 g/dL (13.5-17.5); IMMATURE GRANULOCYTES 0.7 % (0-5); MCH 31.7 pg (26.0-34.0); MCHC 34.5 g/dL (31.0-37.0); MCV 91.9 fL (80.0-100.0); MEAN PLATELET VOLUME 10.7 fL (7.4-10.4); MONOCYTES 12.5 % (2-11); NEUTROPHILS 53.8 % (40-80); PLATELET COUNT 161 10x3/uL (130-400); RBC 4.45 10x6/uL (4.20-6.10); RDW 12.7 % (11.5-14.5); WBC 5.4 10x3/uL (4.8-10.8)
[2018-09-29 05:42] LABS: ALBUMIN 3.3 g/dL (3.4-5.0); ALKALINE PHOSPHATASE 57 U/L (46-116); ALT (SGPT) 23 U/L (10-68); BILIRUBIN - TOTAL 0.47 mg/dL (0.2-1.3); CALC OSMOLALITY 270 mosm/kg (275-300); CALCIUM 9.3 mg/dL (8.5-10.1); CARBON DIOXIDE 26.5 mmol/L (21.0-32.0); CHLORIDE - SERUM 99 mmol/L (98-107); CKMB 0.9 U/L (0.0-3.6); CREATINE KINASE 41 UL (21-232); CREATININE - SERUM 1.6 mg/dL (0.6-1.3); GLUCOSE 93 mg/dL (74-106); POTASSIUM - SERUM 4.2 mmol/L (3.5-5.1); PROTEIN - SERUM 6.7 g/dL (6.4-8.2); SODIUM 134 mmol/L (136-145); UREA NITROGEN 20 mg/dL (7-18); eGFR NON AFRICAN AMERICAN 45 mL/min (90-120)
[2018-09-29 05:49] LABS: TROPONIN-I < 0.017 ng/mL (0.000-0.060)
[2018-09-29 08:33] VITALS: BP 119/66
--- NOTE | 2018-09-29 09:07 | NUR ---
AM MEDS GIVEN AT THIS TIME. HELD BP MEDS DUE TO BP OF 119/66. PT A/O X4, A LITTLE [place]. RESP EVEN AND NONLABORED ON RA. RT FA IV SL. MONITOR SHOWING SB 56. PER DR. AKERS PT CAN HAVE REGULAR DIET. WILL PUT ORDER IN AND HAVE DIETARY BRING TRAY UP. PT DENIES ANY NEEDS AT THIS TIME. CALL LIGHT IN REACH, FAMILY AT BEDSIDE, NAD NOTED, WILL CONTINUE PLAN OF CARE.
[2018-09-29] MEDS ORDERED: CARAFATE1 G PO (09:31)
--- NOTE | 2018-09-29 10:43 | NUR ---
PROVIDED VERBAL AND WRITTEN DISCHARGE TEACHING TO PT AND PT'S DAUGHTER, BOTH VERBALIZED UNDERSTANDING REGARDING TEACHING. SCRIPT FOR NEXIUM GIVEN TO PT. D/C RT FA IV WITH CATHETER TIP INTACT. REMOVED HEART MONITOR AND TAKEN TO SACHI. PT WILL NOTIFY THIS NURSE WHEN READY FOR WHEELCHAIR.
--- NOTE | 2018-09-29 10:59 | NUR ---
PT LEFT UNIT VIA WHEELCHAIR, WITH ALL BELONGINGS, ACCOMPANIED BY FAMILY, NAD NOTED.
== END 2018-09-29 11:00 | disposition home or self-care (01) ==
LOC: OBSVTIME 15:38 → D.M2 15:38
PROVIDERS: ADMIT Family Medicine; ATTEND Family Medicine
DX: K30 Functional dyspepsia (principal); I25.110 Atherosclerotic heart disease of native coronary artery with unstable angina pectoris; I10 Essential (primary) hypertension; E78.5 Hyperlipidemia, unspecified; K21.9 Gastro-esophageal reflux disease without esophagitis; I48.0 Paroxysmal atrial fibrillation

== ENCOUNTER 2019-05-17 08:20 | Day surgery (SDC) | payer MEDICARE, OTHER ==
[2019-05-16 10:19] LABS: HEMATOCRIT 41.6 % (42.0-54.0); HEMOGLOBIN 14.1 g/dL (13.5-17.5); MCH 31.3 pg (26.0-34.0); MCHC 33.9 g/dL (31.0-37.0); MCV 92.2 fL (80.0-100.0); MEAN PLATELET VOLUME 10.3 fL (7.4-10.4); RBC 4.51 10x6/uL (4.20-6.10); RDW 12.7 % (11.5-14.5)
[2019-05-16 10:33] LABS: ANION GAP 11.8 mmol/L (8-16); CALCIUM 8.8 mg/dL (8.5-10.1); CARBON DIOXIDE 29.9 mmol/L (21.0-32.0); CREATININE - SERUM 1.5 mg/dL (0.6-1.3); POTASSIUM - SERUM 4.7 mmol/L (3.5-5.1)
[~2019-05-17] VITALS: Ht 180.3 cm; Wt 109.1 kg
[~2019-05-17 08:20] MED LIST changes: -BUPROBAN150 MG PO; +BUPROPION XL300 MG PO; +CARAFATE1 G PO; +FUROSEMIDE20 MG PO
[2019-05-17] MEDS ORDERED: TYLENOL W/CODEI1 TAB PO (08:33)
[2019-05-17 08:35] VITALS: BP 116/54; Ht 180.3 cm; Wt 109.1 kg
--- NOTE | 2019-05-17 14:44 | NUR ---
1415 DR LYNN'S DIRECTOR OF CATH LAB DELIVERED SAMPLES OF MYRBETRIQ TO PT TO USE FOR BLADDER SPASMS. PT INSTRUCTED BY GERTRUDE LEVINE MA TO TAKE 2 TABLETS A DAY (TOTAL 50MG DAILY) BUT NOT TO TAKE ON THURSDAY, May WHEN HE GETS HIS BARTHOLOMEW REMOVED. PT AND HIS DAUGHTER VOICE UNDERSTANDING OF HER INSTRUCTIONS.
--- NOTE | 2019-05-17 15:38 | NUR ---
1510 BACK TO BED AFTER UP TO BATHROOM. LARGE SOFT BM. SOME BLEEDING NOTED @ MEATUS AROUND CATHETER. GAUZE APPLIED. BACK TO BED BARTHOLOMEW CATHETER DRAINING BRIGHT RED LIQUID. DR. LYNN ROUNDED & SHOWN URINARY OUTPUT IN COLLECTION BAG. STATES IT WILL CLEAR UP. Gabriella BUSTAMANTE R.N.
--- NOTE | 2019-05-17 16:18 | NUR ---
DC INSTRUCTIONS GIVEN TO PT/FAMILY. STATE UNDERSTANDING. DC'D IV CATH FULLY INTACT. SWITCHED TO LEG BAG.
--- NOTE | 2019-05-17 16:36 | NUR ---
PT LEFT UNIT VIA WC AT 1625
--- NOTE | 2019-05-18 08:51 | OP ---
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 On finasteride and tamsulosin. PROCEDURE: UroLift times 8 units deployed, 6 held in position. FINDINGS: Long bilateral lateral lobes with obstruction. Minimal median lobe. Single ureteral orifices bilaterally with no bladder tumors. ESTIMATED BLOOD LOSS: Minimal. CLINICAL HISTORY: This is a 74-year-old male with obstructive BPH and urge urinary incontinence. He has been on tamsulosin and finasteride for over a year. There are side effects from these medications. He has a history of coronary artery disease with 3 coronary artery stents. He was cleared by Dr. Zamudio for surgery. He is off Plavix. HE IS ALLERGIC TO SULFA AND ATACAND. He was given Levaquin IV licensed nuclear control room operator to the OR. DESCRIPTION OF PROCEDURE: The patient was given IV sedation. He was placed into lithotomy position and prepped and draped. The UroLift scope was introduced. Findings are as outlined above. A 1.5 cm distal to the bladder neck at the anterolateral sulcus, I attempted to place 1 unit on each side. The right side went in without any issues. In the left side, I had a bone strike initially and this unit failed to release the suture. I tried again and again had a bone strike on the left side and this unit malfunctioned with the needle out. The needle was withdrawn through the sheath of the scope, so that there would be no tissue injury and then this was discarded. Final attempt finally got the unit to hold properly. At the anterolateral sulcus at the level of the verumontanum 1 unit was placed on each side. Looking in with the obturator there was still obstruction in the mid prostatic urethra. At the mid prostatic urethra at the mid height between the anterior and posterior distance I inserted one more unit on each side. This gave a total of 6 units. The prostatic urethra was now wide open. There was some bleeding from the misfires. A 16-Salvadorean Mireles catheter was inserted into the bladder and the balloon inflated with 10 mL of sterile water. He will be going home with a catheter. I will see him in followup next week to remove the catheter for a voiding trial. TRANSINT:[id number] Voice Confirmation ID: [id number] DOCUMENT ID: [id number] OPERATIVE REPORT [id number] ELENA AKERS, ANTHONY Contreras MD at 0851 CC: [id number] DICTATION DATE: 05/17/19 1323 WIRE TESTER: 05/17/[address] [facility] 05/17/[address] [id number]
== END 2019-05-17 16:29 | disposition home or self-care (01) ==
LOC: D.OPS 08:20 → D.PAN 10:30 → D.OPS 12:35 → D.PAN 12:35 → D.OPS 13:15
PROVIDERS: Anesthesiology; ATTEND Urology
DX: N40.1 Benign prostatic hyperplasia with lower urinary tract symptoms (principal); I25.10 Atherosclerotic heart disease of native coronary artery without angina pectoris; I10 Essential (primary) hypertension; I48.0 Paroxysmal atrial fibrillation; K21.9 Gastro-esophageal reflux disease without esophagitis; K57.30 Diverticulosis of large intestine without perforation or abscess without bleeding; E29.1 Testicular hypofunction

== ENCOUNTER → 2019-06-17 15:20 | Outpatient (CLI) | payer MEDICARE, OTHER ==
[2019-05-17 08:35] VITALS: BMI 33.5
[~2019-06-17 15:20] MED LIST changes: +TYLENOL W/CODEI1 TAB PO
== END | disposition home or self-care (01) ==
LOC: D.LABREF 15:20
PROVIDERS: ATTEND Urology
DX: R82.90 Unspecified abnormal findings in urine (principal)

== ENCOUNTER → 2019-07-13 17:59 | Outpatient (CLI) | payer MEDICARE, OTHER ==
[2019-05-17 08:35] VITALS: BMI 33.5
== END | disposition home or self-care (01) ==
LOC: D.LABREF 17:59
PROVIDERS: ATTEND Urology
DX: R82.90 Unspecified abnormal findings in urine (principal)

== ENCOUNTER → 2019-08-22 22:35 | Outpatient (CLI) | payer MEDICARE, OTHER ==
[2019-05-17 08:35] VITALS: BMI 33.5
== END | disposition home or self-care (01) ==
LOC: D.LABREF 22:35
PROVIDERS: ATTEND Urology
DX: R82.90 Unspecified abnormal findings in urine (principal)

== ENCOUNTER → 2020-09-06 23:29 | Outpatient (CLI) | payer MEDICARE, OTHER ==
[2020-05-08 15:06] VITALS: BMI 36.0
[~2020-09-06 23:29] MED LIST changes: +ALBUTEROL SULF8.5 GM INH; +ALDACTONE50 MG PO; +HYDROCODON-ACE1 EA10 PO; +LIPITOR20 MG; +SENNA LAXATIVE8.6 MG PO; +VITAMIN C500 M1
== END | disposition home or self-care (01) ==
LOC: D.LABREF 23:29
PROVIDERS: ATTEND Orthopaedic Surgery
DX: M17.12 Unilateral primary osteoarthritis, left knee (principal)

== ENCOUNTER → 2020-10-11 07:48 | Outpatient (CLI) | payer MEDICARE, OTHER ==
[2020-05-08 15:06] VITALS: BMI 36.0
== END | disposition home or self-care (01) ==
LOC: D.HCCARDIO 07:48
PROVIDERS: ATTEND Internal Medicine Cardiovascular Disease
DX: I48.91 Unspecified atrial fibrillation (principal)